=== PATIENT | female | born 1955 | race Caucasian/White ===

== ENCOUNTER 2020-04-17 05:46 | Day surgery (SDC) | payer MEDICARE, MEDICAID, SELFPAY ==
[2020-04-17] VITALS (30 sets, daily range): BP systolic 106–203; BP diastolic 52–110; PULSE 62–87; RESP 12–24; TEMP 36.8; O2SAT 90–95
[2020-04-17] MEDS: diphenhydrAMINE 50 mg Capsule PO (06:19)
--- NOTE | 2020-04-17 07:00 | XACV_ITS ---
Ht: 160 cm Wt: 54 kg BSA: 1.54 m2 Gender: Female : 1955 Any Known Allergies: No known allergies Exam Priority: Routine Procedure(s): Procedure Description: Diagnostic procedure Procedure Description: Left Heart Catheterization Procedure Description: Right Heart Catheterization Procedure Description: O2 saturation Procedure Description: Coronary Angiography Diagnostic Cath Status: Elective Diagnostic Findings * CX has luminal irregularities. It gives rise to 2 OM branches which are free of significant disease.. * RCA is the dominant vessel. It has luminal irregularities. . * mLAD to dLAD: Moderate to severe 60-70% stenosis, ONELIA: 3 flow. Attempt was made to perform FFR of mid LAD, however patient was very restless moving her legs and arms and it was not safe to continue without anesthesia support. Anesthesia was not available. We aborted the FFR attempt. * RHC: RA Pressure: 16/14 (13) RV: 35/6(13) 13 Wedge pressure: 15/15(14) PA pressure: 38/17(24) PA sat 66.4% Ao sat 95% By Mark cardiac output 3.23 L/min Cardiac index 2.1 . * LM has 0% stenosis. * Coronary angiography shows right dominance. Interventional Findings * We engaged the left main artery using XB 3.0 guide catheter. An attempt was made to wire the LAD with FFR wire. However patient was very restless and kept moving the legs and the arms. It was not considered safe to continue with the procedure without anesthesia support. We aborted the FFR attempt. We will arrange for staged procedure with anesthesia support. Conclusions 1. There is moderate to severe coronary artery disease with one vessel disease. Mid LAD 60 to 70% stenosis is noted. This likely is severe stenosis given her cardiomyopathy and more prominent hypokinesis and apical region correlates with the stenosis. However given angiographically 60 to 70% stenosis, will need FFR evaluation before intervention is performed.. 2. Mildly elevated right-sided pressures. Normal wedge pressure. Recommendations * Patient could not stay still and was very restless. She was moving her legs and arms that made proceeding with wiring of LAD unsafe without anesthesia support. We will stage the procedure with anesthesia to perform FFR and likely intervention of mid LAD. * Continue current medications. Diagnostic RX Recommendation: medical therapy and/or counseling Anticoagulation: Heparin Pressures Phase:Rest AO : / ( 9 ) @ 2:10:00 AM 165 / 81 ( 116 ) @ 2:43:00 AM 163 / 89 ( 120 ) @ 2:43:00 AM 166 / 82 ( 118 ) @ 2:44:00 AM 170 / 87 ( 123 ) @ 2:47:00 AM RV : 24 / -3 / @ 2:29:00 AM 35 / 6 / @ 2:29:00 AM PA : 38 / 17 ( 24 ) @ 2:30:00 AM RA : a wave = v wave = mean = 2 @ 2:29:00 AM a wave = v wave = mean = 13 @ 2:32:00 AM O2 Content Phase:Rest PA : O2 Content O2: 66.4 @ 2:10:00 AM Saturations Phase:Rest AO : 95 @ 2:43:00 AM PA : 66 @ 2:10:00 AM Cardiac Output Phase:Rest Mark : 3 @ 2:10:00 AM Mark Cardiac Index: 2 @ 2:10:00 AM Clinical Evaluation EBL: 5mL-10mL Procedural Details Procedure Consent Obtained. Pre-Procedure Time Out. Identified patient by full name and date of as verbalized by the patient/guarantor. Does the consent match the physician's order: Yes. Accurate & Complete Informed Consent: Yes. Inpatient/Outpatient History & Physical on Chart: Yes. If H&P is completed, is and addenduem needed: N/A; If yes, is the addendum complete: N/A. Visualize and Verify Site with Patient/Guarantor: N/A. Relevant Radiology Images available: Yes. Pre-op teaching completed and patient verbalized understanding. The risks, benefits, and alternatives of sedation and/or procedure were discussed by physician. The patient agrees to continue. Procedure started. Correct patient, site and procedure confirmed by cath team. PERRLA. Strong, equal hand steam train driver bilaterally. Lungs clear x 5 lobes. IV Site on Arrival: 20 gauge in the right anticubital. IV Site on Arrival: 22 gauge in the left anticubital. IV Fluids: 0.9% NaCl at KVO. 0 mL infused prior to shipyard laborer. Pre Procedural Pulses: bilateral dorsalis pedis was 3+. Pre Procedural Pulses: bilateral posterior tibial was Doppled. Pre Procedural Pulses: bilateral radial was 3+. pt on R/A for right heart cath. right groin was prepped with chloroprep then draped in the usual sterile fashion. right radial was prepped with chloroprep then draped in the usual sterile fashion. right brachial was prepped with chloroprep then draped in the usual sterile fashion. Physician notified. Baseline sample Acquired. HR: 68 BPM. Equipment: 6F - Radial. ACIST Manifold Kit Model BT 2000. Cardiac Cath Pack. Heparinized Saline (2 units/mL), 1000 mL bag. Physician arrived. Physician scrubbed in. Immediate Pre-Procedure Time Out. Correct Patient: Yes; Correct Procedure: Yes; Correct Site: Yes; Correct Patient Position: Yes; Correct Supplies: Yes; Dried Flammable Prep: Yes; Blood Products Available: No;. Lidocaine 1% infiltrated to the right brachial. sheath wire inserted through iv catheter. iv catheter out. [place]-Ronald MON catheter inserted. cougar wire inserted through swan. cougar wire out. Catheter out. A 5 niuean Angled Pig catheter in over wire. [place]onald out. Pressure measurements obtained. Oximetry samples were obtained. Normal venous range: 60-85%. Normal arterial range: 95-100%. Lidocaine 1% infiltrated to the right radial. Arterial access obtained. A 5 niuean TIG catheter in over wire. Oxygen started at 2liters/min via nasal canula. Multiple views taken of left coronary artery. Catheter redirected to the RCA. Multiple views taken of right coronary artery. Catheter out. 6 niuean XB 3 guide catheter was inserted over the wire. pressure wire inserted. Anesthesia called. Unavailable at this time. pressure wire out. Guide catheter out. unable to obtain FFR. A Manual Compression was successful obtaining hemostatsis at the Right Brachial Vein insertion site. A TR Band was successful obtaining hemostatsis at the Right Radial artery insertion site. TR band placed. Hemostasis obtained. Pressure dressing applied to brachial. Post Procedure: Pulses reassessed and unchanged. PERRLA. Strong, equal hand steam train driver bilaterally. No VTE prophylaxis required. Medication's Wasted: Lidocaine 1% = 15 mL. Medication's Wasted: Heparin = 4000 units. Medication's Wasted: Nitro = 49.8 mg. Medication's Wasted: Other = Adenosine 90 mg. Total IV fluids: 85.6 mL. Fluoro: 10:00. Contrast type used: Omnipaque 300 mgI/mL, 500 mL bottle. [id number]. Post-op diagnosis: moderate LAD disease. Complications: none. Estimated blood loss: 5mL-10mL. Procedure completed. Patient transferred by bed to CPRU. [facility] Clinical Fraility Score: 3: Managing Well. Asset Protection Assistant Indications: Worsening Angina. Asset Protection Assistant Indications: Cardiomyopathy. Chest Pain Symptom Assessment: Typical Angina Symptoms. Cardiovascular Instability: No. Vital chart was stopped. Access Site Site: Right Brachial Vein Sheath Size: 6 Fr Hemostasis Method: Manual Compression Hemostasis Success: Successful Site: Right Radial artery Sheath Size: 6 Fr Hemostasis Method: TR Band Hemostasis Success: Successful Procedure Medications Start: 7:19 AM Stop: 7:19 AM Medication: Versed Amount: 1 mg Route: I.V. Start: 7:19 AM Stop: 7:19 AM Medication: Fentanyl Amount: 25 mcg Route: I.V. Start: 7:23 AM Stop: 7:23 AM Medication: Versed Amount: 1 mg Route: I.V. Start: 7:34 AM Stop: 7:34 AM Medication: Fentanyl Amount: 25 mcg Route: I.V. Start: 7:38 AM Stop: 7:38 AM Medication: Nitrogylcerin Amount: 200 mcg Route: I.A. Start: 7:40 AM Stop: 7:40 AM Medication: Versed Amount: 1 mg Route: I.V. Start: 7:41 AM Stop: 7:41 AM Medication: Heparin Amount: 5000 units Route: I.V. Start: 7:48 AM Stop: 7:48 AM Medication: Versed Amount: 1 mg Route: I.V. Start: 7:48 AM Stop: 7:48 AM Medication: Fentanyl Amount: 50 mcg Route: I.V. Start: 7:57 AM Stop: 7:57 AM Medication: Heparin Amount: 2000 units Route: I.V. I, the attending physician, have reviewed and verified all procedure medications. Yes, all medications given per verbal order History/Risk Factors Hypertension: Yes Tobacco Use: Former Report Signatures Finalized by Keshawn Kohli MD on 04/17/2020 09:05 AM
--- NOTE | 2020-04-17 07:19 | W.PM.OPSUD ---
Surgery/Procedure H&P Update DATE OF PROCEDURE: April 17, 2020 DATE H&P PERFORMED: 03/26/20 H&P UPDATE INFORMATION: I have reviewed H&P completed within last 30 days, I have examined patient prior to procedure and No changes to prior documentation PREOP DIAGNOSIS: Worsening angina/New onset heart failure PRIMARY INDICATION FOR PROCEDURE: Worsening angina/new onset heart failure PLANNED PROCEDURE: Operation Date: 04/17/20 07:00 Proposed Procedures p Cardiac Catheterization(Bilateral) - Keshawn Kohli M.D Right heart cath/possible intervention PATIENT REASSESSED PRIOR TO SEDATION, WITH NO CHANGE NOTED: Yes PHYSICAL EXAM: alert, oriented x 3 and clear to auscultation bilaterally AIRWAY EVAL/ANESTHESIA PLAN: ASA III, Risks, benefits & alternatives of sedation and/or procedure discussed and Patient agrees to continue as planned
--- NOTE | 2020-04-17 08:30 | PC.NURSE ---
From seed laboratory technician Received pt from lab nurse via wheelchair. Sleepy from sedation. Opens eyes when awaken. Tr band intact in right wrist. Bulky dressing on right bracial artery intact. Bleeding or swelling noted to right upper arm. No hematoma, swelling, bleeding noted. Radial pulse is palpable +3. Instructed pt to not to use right hand arm to push, pull to prevent from bleeding. Instructed pt to call nurse right away if there is unusual pain, numbness or wetness on her right hand. Pt verbalizes understanding.
--- NOTE | 2020-04-17 10:15 | PC.NURSE ---
Oozing noted Pt got out of the B[facility] independently and started to have blood oozing in her TR Band. Reminded pt not to put pressure using her right arm. Pt verbalizes understanding. Applied 3 ml of air back in the TR band. No hematoma, swelling or bleeding. Radial pulse is palpable +3. Will monitor.
[2020-04-17] MEDS: sertraline 50 mg Tablet 25 MG PO (10:35)
[2020-04-17] MEDS: levothyroxine 50 mcg Tablet PO (10:35)
[2020-04-17] MEDS: lisinopril 20 mg Tablet 40 MG PO (10:36)
[2020-04-17] MEDS: pantoprazole DR 40 mg Tablet PO (10:36)
[2020-04-17] MEDS: metoprolol tartrate 50 mg Tablet PO (10:36)
[2020-04-17] MEDS: hyDRALAzine 20 mg/mL INJ 1 mL 10 MG IVP (10:37)
[2020-04-17] MEDS: amlodipine 10 mg Tablet PO (10:37)
--- NOTE | 2020-04-17 11:23 | PC.CHAP ---
Pastoral Care Encounter/Spiritual Assessment Type of Contact [] Declined fire control system installer visit [] Patient/Family/Request visit [] Outpatient visit [] Follow-up visit [] Physician referral [] Code/Alert [] Routine visit [] Staff referral [] Actively dying [xx] Patient sleeping [] Family support [] [] Out of room [] Palliative care [] [] Receiving care in room [] Pre-surgical visit [] Trauma [] Long length of stay [] ICU visit [xx] Other: Follow up needed Relational/Emotional Strength [] Patient feels connected with others/family/visitors/staff [] Distress [] Loneliness/isolation [] Abandonment Spirituality of Patient [] Person of Bee [] Attends Islam of their Bee [] Believes in Prayer [] Reads Bible or Religion materials [] There are Spiritual issues to be addressed Laborer Electroplating Interventions [] Prayer [] Active listening [] Non-anxious presence [] Spiritual/emotional support [] Crisis/trauma care [] Spiritual counseling [] Bereavement support [] Provided bereavement packet [] Provided Bible/devotional materials [] Provided toy/stuffed animal, coloring book to patient or family member [] Provided Communion [] Anointing/[place] [] Salvation [] Completed spiritual assessment [] Other: Impact on Illness or Injury [] Angry [] Fearful [] Anxious [] Often cries [] Exhaustion [] Unable to work [] Unable to attend nondenominational [] Unable to walk/stand [] Unable to read [] Unable to drive [] Unable to eat/drink [] Unable to sleep [] Unable to be with family [] Patient intubated [] Other: Summary Follow-up needed. Patient had been sedated. Time spent with patient Laborer Electroplating Debra Lomeli
--- NOTE | 2020-04-17 12:30 | PC.NURSE ---
TR band off Removed Tr band on right wrist. no hematoma, swelling or bleeding noted. Palpable radial pulse +3. Dressing applied to right wrist. Instructed pt on activity restrictions. Pt verbalizes understanding.
--- NOTE | 2020-04-17 16:00 | PC.NURSE ---
Discharge to home Discuss to pt on follow-up appointments discussed. Educated pt on post angiogram home care instructions. Activity restrictions provided on how to not use her right arm for 2 days. Educated on wound care. Discharge papers provided to pt. Ushered via wheelchair.
== END 2020-04-17 16:03 | disposition home or self-care (01) ==
LOC: CCL 06:28 → CSU 07:21
PROVIDERS: Visit Provider Internal Medicine
DX: I25.10 Atherosclerotic heart disease of native coronary artery without angina pectoris (principal); R07.89 Other chest pain; I10 Essential (primary) hypertension; I11.0 Hypertensive heart disease with heart failure; I50.20 Unspecified systolic (congestive) heart failure; I44.7 Left bundle-branch block, unspecified; E78.00 Pure hypercholesterolemia, unspecified; Z79.82 Long term (current) use of aspirin; E03.9 Hypothyroidism, unspecified; Z87.891 Personal history of nicotine dependence
CPT/HCPCS: 12345; 36415; 93456; 96375; C1769; C1887; C1894; J0153; J0360; J1644; J2250; J3010; J3490; J7030; Q0163; Q9967

== ENCOUNTER 2020-08-31 06:45 | Outpatient (CLI) | payer MEDICARE, MEDICAID, SELFPAY ==
[2020-08-31 07:35] VITALS: BMI 21.2
--- NOTE | 2020-08-31 07:37 | NMCV_ITS ---
NM wesley perf SPECT r/s* [id number] Tari Hyatt Age: 64 Gender: F : 1955 Exam Date: 08/31/2020 08:45 Ordering Phys: Keshawn Kohli M.D ([email or web address]) Technologist: KADI Heller Exam Location: [facility] Indications: ATHEROSCLEROTIC STRESS TEST Please see [facility] for [facility] IMAGE PROTOCOL Rest/Stress 1 Lexiscan Day Radiopharmaceutical Dose (mCi) Administration Site Administered by Rest: Tc-99m 10.9 IV KADI Graves Sestamibi Stress:Tc-99m 32.3 IV KADI Graves Sestamibi Rest: 31-Aug-2020 60 Discovery 630 Stress: 31-Aug-2020 30 Discovery 630 0.4mg Lexiscan. Images obtained in supine and prone position. SPECT RESULTS Technical Quality: Excellent Raw Data Analysis: Normal Image Corrections: No attenuation or motion correction applied Summed Stress Score: 1 Summed Rest Score: 4 Summed Difference Score: 0 PERFUSION FINDINGS There is reduced radiotracer uptake in the apical and apical septal arnold both on rest and stress. Likely represents prior infarct vs attenuation artifact FUNCTIONAL RESULTS (calculated via Gated SPECT) Stress Image LV EF (%): 35 Stress EDV (mL):107 TID: 1.33 Stress ESV (mL):70 FUNCTIONAL FINDINGS: LV systolic function is moderate to severely reduced with EF of 35% IMPRESSIONS 1. There is reduced radiotracer uptake in the apical and apical septal anrold both on rest and stress. Likely represents prior infarct vs attenuation artifact. No evidence of ischemia. 2. Elevated TID ratio of 1.33 2. LV systolic funtion is moderate to severely reduced with EF of 35% Keshawn oKhli MD (Electronically Signed) Final Date: 04 September 2020 17:34 S
--- NOTE | 2020-08-31 07:37 | ECG_ITS ---
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 Interpretive Statements NAME OF STUDY: LEXISCAN SESTAMIBI STRESS TEST INDICATION: [Coronary Artery Disease] Procedure: At the baseline, the blood pressure was 208/114mmHg, heart rate of 77 bpm. Electrocardiogram showed normal sinus rhythm,left bundle branch block. The Lexiscan was infused over a duration of 20 seconds. A total of 0.4 mg of Lexiscan was infused. The stress phase was continued for a total of 5 minutes. Heart rate at the end of stress phase was 131 bpm with a blood pressure of 210/110 mmHg. The EKG revealed sinus rhythm with no significant ST-T wave changes. Sestamibi was injected 20 seconds after the Lexiscan infusion. Blood pressure at the end of recovery phase was 198/99mmHg with a heart rate of 80 bpm. Conclusion: 1. Normal EKG response to Lexiscan infusion. 2. No Lexiscan induced chest pain or cardiac arrhythmia. 3. Normal blood pressure and tachycardic heart rate response. 4. Sestamibi/sestamibi perfusion scan pending; see separate report. Electronically Signed On 09-20-2020 17:23:31 CDT by Keshawn Kohli M.D. [id number]
[2020-08-31] MEDS: regadenoson 0.4 Mg/5 ml Syringe IVP (10:52)
[2020-08-31] MEDS: aminophylline 25 mg/mL SDV 10 mL IVP (10:59)
[2020-08-31] MEDS: metoprolol tartrate 1 mg/1 mL SDV 5 mL 5 MG IV (11:20)
[2020-08-31 11:31] VITALS: BP 198/99; PULSE 73
== END 2020-08-31 06:46 | disposition home or self-care (01) ==
LOC: RAD 06:51 → CDL 07:19
PROVIDERS: PCP Family Medicine; Visit Provider Internal Medicine
DX: I25.10 Atherosclerotic heart disease of native coronary artery without angina pectoris (principal)
CPT/HCPCS: 78452; 93017; A9500; J0280; J2785; J3490

== ENCOUNTER 2020-09-27 01:17 | Inpatient (IN) | payer MEDICARE, MEDICAID, SELFPAY ==
[2020-09-27] VITALS (86 sets, daily range): BP systolic 103–186; BP diastolic 55–103; PULSE 64–124; RESP 12–46; TEMP 36.6–36.7; O2SAT 92–97; BMI 22.6
--- NOTE | 2020-09-27 01:16 | P.HP_ITS ---
Providers/Chief Complaint Admitting Physician: Bridger Moore MD Primary Care Provider: Eagle Quintanilla Chief Complaint: NONSTEMI History of Present Illness Tari Hyatt is a 64 year old female who has an established history of coronary artery disease, left heart catheterization 04/07 revealed significant restenosis mid LAD 60 to 70% however procedure was aborted without intervention because of patient's agitation/symptoms, EF 35% history of hypothyroidism, hypertension, she presented to [place] [facility] with chief complaint of worsening shortness of breath. At [place] [facility] she was very anxious tachypneic with respiratory distress, she was requiring 2 L nasal cannula to keep saturation above 92%, EKG revealed chronic left bundle branch block, first troponin 18, 2-hour troponin 68, CTA negative for PE, she was hypertensive as well for which she was given IV Catapres 0.1mg and metoprolol 25mg which brought her pressure down from 200 to 130mmhg systolic. See 10 units for hyperglycemia blood sugar around 350s. Tsh 5. Mild JEANNINE was noticed on BMP with delta of creatinine from 0.9-1.5, Dr. Kohli was contacted who accepted the patient and agreed with NSTEMI protocol. At the time of my evaluation patient was comfortably sleeping in her room, not complaining of any chest pain or shortness of breath she was saturating well on room air blood pressure 151/70 mmHg. Patient is stating that she had a panic attack and she was breathing very fast as when she went to the hospital, she also experienced 20 minutes of chest discomfort which she describing as pressure-like sensation, she experienced 1 episode of emesis 24 hours before her presentation to the ER. She recently started using amlodipine for her hypertension along with lisinopril, hydralazine and hydrochlorothiazide. Review of Systems Const: Reports: fatigue; Denies: fever(s) Eyes: Denies: change in vision ENMT: Denies: throat pain Card: Reports: chest pain and dyspnea on exertion; Denies: palpitations, irregular heart rhythm or orthopnea Resp: Reports: dyspnea and non-productive cough GI: Reports: vomiting; Denies: abdominal pain or diarrhea : Denies: flank pain Musc: Denies: neck pain Skin/Breast: Denies: lesions Neuro: Denies: headache(s) Psych: Reports: anxiety Endo: Denies: polyuria Gustavo/Lymph: Denies: easy bruising All/Imm: Denies: urticaria Medications/Allergies Home Medications Medication Instructions Recorded Confirmed Last Taken Type aspirin 81 mg tablet,delayed 81 mg PO QPM 03/26/20 09/27/20 04/16/20 21:00 History release levothyroxine 50 mcg capsule 50 mcg PO QAM 03/26/20 09/27/20 09/26/20 07:00 History lisinopril 40 mg tablet 40 mg PO QAM 03/26/20 09/27/20 09/26/20 08:00 History metoprolol tartrate 50 mg tablet 50 mg PO BID 03/26/20 09/27/20 04/16/20 09:00 History nitroglycerin 0.4 mg sublingual 0.4 mg SUBLINGUAL Q5M PRN 03/26/20 09/27/20 Unknown History tablet omeprazole 40 mg capsule,delayed 40 mg PO QAM 03/26/20 09/27/20 04/16/20 09:00 History release amlodipine 10 mg PO QAM 04/16/20 09/27/20 04/16/20 09:00 History cholecalciferol (vitamin D3) 50 mcg PO DAILY 09/27/20 09/27/20 Unknown History [Vitamin D3] hydralazine 50 mg PO BID 09/27/20 09/27/20 Unknown History hydrochlorothiazide 12.5 mg PO DAILY 09/27/20 09/27/20 Unknown History lovastatin 20 mg PO 1800 09/27/20 09/27/20 Unknown History magnesium 250 mg PO DAILY 09/27/20 09/27/20 Unknown History metformin 500 mg PO BIDWM 09/27/20 09/27/20 Unknown History sertraline 50 mg PO DAILY 09/27/20 09/27/20 Unknown History Allergies Allergy/AdvReac Type Severity Reaction Status Date / Time No Known Allergies Allergy Unverified 09/22/20 14:52 PFSH Acute PFSH: Medical History Abn react-cardiac cath Congestive heart failure Diabetes HLD (hyperlipidemia) Hypercholesterolemia Left bundle branch block Surgical History Hx of cardiac cath Family History Other Hypertension Social History Smoking and tobacco status: former smoker Quit status (tobacco): has quit using tobacco Second hand smoke exposure: No Smoking risk assessment/counseling performed?: No Alcohol intake: never Desire information about alcohol rehabilitation?: No Counseling given: No Desire information about substance/drug rehabilitation?: No Vitals/I&O/Wt Last Vital Signs Pulse 79 09/27/20 00:32 Resp 17 09/27/20 00:32 BP 151/71 09/27/20 00:32 Pulse Ox 94 09/27/20 00:32 Weight last 48 hrs Weight 58.06 kg Physical Exam Narrative: EXAM NARRATIVE: female who was comfortably sleeping in her room when I entered, She became very startled when I woke her up Blood pressure 155/77 mmHg Saturating well on room air No active chest pain or shortness of breath S1, S2 grade 2/6 systolic murmur right second intercostal Abdomen soft no active tenderness EOMI, PERRLA No neurological deficit Awake alert and attentive GCS 15 Patient does endorse panic attack Low extremity no edema gangrene ulcer Clinically looks dehydrated A&P Assessment and plan (1) NSTEMI (non-ST elevated myocardial infarction): Status: Acute (2) Left bundle branch block: Status: Acute (3) Hypertensive urgency: Status: Acute (4) JEANNINE (acute kidney injury): Status: Acute (5) Panic attack: Status: Acute Additional A&P Information NSTEMI EKG showing T wave inversion,. Troponin XVIII, 2-hour troponin 68 with delta of 50, I would request another troponin level and EKG Currently chest pain-free no active shortness of breath saturating well on room air Start heparin Avoid metoprolol because of left bundle branch block and lisinopril because of JEANNINE Start aspirin, Plavix, heparin and atorvastatin Dr. Kohli consulted Patient will be kept n.p.o. overnight Acute kidney disease due to dehydration Patient clinically looks dehydrated I will stop her lisinopril hydrochlorothiaz kimberli We will keep her on gentle fluid resuscitation overnight if her creatinine improves in the morning, she might go for an angiogram Type 2 diabetes: Uncontrolled blood sugar I will keep her on low-dose sliding scale because she will be n.p.o., if angiogram gets delayed kindly start her diet with moderate sliding scale Hypertensive urgency: Systolic blood pressure 200s, current blood pressure 1 55mmhg I would avoid rapid reduction of blood pressure, we will keep her on hydralazine and would use IV as needed medications if systolic blood pressure ranges above 180mmhg Suboptimally controlled hypothyroidism: TSH 5 I would go ahead and increase her levothyroxine dose to 75 mcg Full code N.p.o. DVT prophylaxis not indicated due to heparin GTT Attestations Medical Necessity Statement*: Anticipating stay in the hospital because more than 2 midnights for NSTEMI will need an angiogram Time Spent in Patient Care: (>than 50% of time spent in counselling and/or direct pt care on unit) . 40mins Coding Level of Care Code Acute Watershed Coordinator for Melissa Ruiz Diagnoses NSTEMI (non-ST elevated myocardial infarction) I21.4 Left bundle branch block I44.7 Hypertensive urgency I16.0 JEANNINE (acute kidney injury) N17.9 Panic attack F41.0
--- NOTE | 2020-09-27 01:19 | ECG_ITS ---
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 Measurements Intervals [place] Rate: 69 P: 53 [place]: 170 QRS: -30 QRSD: 143 T: 164 QT: 443 QTc: 477 Interpretive Statements SINUS RHYTHM LEFT BUNDLE BRANCH BLOCK [120+ ms QRS DURATION, 80+ ms Q/S IN V1/V2, 85+ ms R IN I/aVL/V5/V6] No previous ECG available for comparison Electronically Signed On 09-27-2020 15:31:08 CDT by Keshawn Kohli M.D. [id number]
[2020-09-27] MEDS: sodium chloride 0.9% 1,000 ML 75 ML IV ×2 (02:35→18:37)
[2020-09-27] MEDS: heparin 5,000 unit/mL INJ 1 mL IV (02:37)
[2020-09-27] MEDS: heparin drip 25,000 UNIT/500 ML PREMIX 16 UNIT IV (02:40)
[2020-09-27 05:11] LABS: Basophils # 0.1 10^3/uL (0.0-0.1); Basophils % 0.7 %; Eosinophils # 0.1 10^3/uL (0.0-0.8); Eosinophils % 1.4 %; Hematocrit 34.9 % (37.0-47.0); Hemoglobin 11.5 g/dL (11.5-15.3); Lymphocytes # 2.1 10^3/uL (0.8-4.8); Lymphocytes % 29.5 %; Mean Corpuscular Hemoglobin 29.9 pg (28.0-34.0); Mean Corpuscular Volume 90.9 fL (81-99); Mean Platelet Volume 10.6 fL (7.4-10.4); Monocytes # 0.5 10^3/uL (0.2-0.9); Monocytes % 7.3 %; Nucleated Red Blood Cells % 0 %; Platelet Count 191 10^3/cmm (130-400); Red Blood Count 3.84 10^6/uL (4.1-5.3); Red Cell Distribution Width 11.7 % (12.1-15.1); White Blood Count 7.2 10^3/uL (4.0-10.0)
[2020-09-27] MEDS: pantoprazole DR 40 mg Tablet PO (05:17)
[2020-09-27] MEDS: levothyroxine 75 mcg Tablet PO (05:17)
[2020-09-27] MEDS: amlodipine 10 mg Tablet PO (05:17)
[2020-09-27 05:40] LABS: Anion Gap 15.6 (5-19); Blood Urea Nitrogen 22 mg/dL (8-23); Calcium 7.6 mg/dL (8.5-10.5); Carbon Dioxide 20 mmol/L (22-29); Chloride 108 mmol/L (98-107); Glomerular Filtration Rate 62.8 mL/min (90-130); Glucose 191 mg/dL (65-115); Osmolality Calculated 296 mOsm/kg (285-295); Potassium 4.6 mmol/L (3.5-5.1); Sodium 139 mmol/L (136-145)
[2020-09-27 06:33] LABS: Troponin T (5th) Once 116 ng/L (0-10)
[2020-09-27] MEDS: isosorbide mononitrate ER 30 mg Tablet PO (08:32)
[2020-09-27] MEDS: sertraline 50 mg Tablet PO (08:32)
[2020-09-27] MEDS: hyDRALAzine 50 mg Tablet PO ×2 (08:33→17:45)
[2020-09-27] MEDS: aspirin 81 mg EC Tablet PO (08:33)
[2020-09-27] MEDS: clopidogrel 75 mg Tablet PO (08:33)
--- NOTE | 2020-09-27 08:50 | PM.CONSULT ---
Providers/Reason For Consult Consulting Physican/Specialty*: Keshawn Kohli MD/ Cardiology Reason for Consult*: NSTEMI Requesting Physcian: Dr Chiu Attending Physician: Bridger Moore MD Primary Care Provider: Eagle Quintanilla History of Present Illness History of Present Illness Tari Hyatt is a 64 year old female with PMH history of coronary artery disease, left heart catheterization 04/07 revealed moderate to severe mid LAD 60 to 70%. Plan was to perform FFR however patient could not lay down still and we had to abort the procedure. Stress test later on showed elevated TID ratio. Her EF is 35%. She also has history of hypothyroidism, difficult to control hypertension. Patient presented to [facility] with complaints of shortness of breath. She also had a chest pain episode that lasted about 20 minutes. Her blood pressure was significantly elevated. Her troponins trended up significantly. She is currently chest pain-free. She has left bundle branch block which is chronic on her EKG. Patient also had episode of emesis yesterday. Review of Systems Const: Reports: fatigue; Denies: fever(s) Eyes: Denies: change in vision ENMT: Denies: throat pain Card: Reports: chest pain and dyspnea on exertion; Denies: palpitations, irregular heart rhythm or orthopnea Resp: Reports: dyspnea and non-productive cough GI: Reports: vomiting; Denies: abdominal pain or diarrhea : Denies: flank pain Musc: Denies: neck pain Skin/Breast: Denies: lesions Neuro: Denies: headache(s) Psych: Reports: anxiety Endo: Denies: polyuria Gustavo/Lymph: Denies: easy bruising All/Imm: Denies: urticaria Meds/Allergies Home Medications and Allergies Home Medications Medication Instructions Recorded Confirmed Last Taken Type aspirin 81 mg tablet,delayed 81 mg PO QPM 03/26/20 09/27/20 04/16/20 21:00 History release levothyroxine 50 mcg capsule 50 mcg PO QAM 03/26/20 09/27/20 09/26/20 07:00 History lisinopril 40 mg tablet 40 mg PO QAM 03/26/20 09/27/20 09/26/20 08:00 History metoprolol tartrate 50 mg tablet 50 mg PO BID 03/26/20 09/27/20 04/16/20 09:00 History nitroglycerin 0.4 mg sublingual 0.4 mg SUBLINGUAL Q5M PRN 03/26/20 09/27/20 Unknown History tablet omeprazole 40 mg capsule,delayed 40 mg PO QAM 03/26/20 09/27/20 04/16/20 09:00 History release amlodipine 10 mg PO QAM 04/16/20 09/27/20 04/16/20 09:00 History cholecalciferol (vitamin D3) 50 mcg PO DAILY 09/27/20 09/27/20 Unknown History [Vitamin D3] hydralazine 50 mg PO BID 09/27/20 09/27/20 Unknown History hydrochlorothiazide 12.5 mg PO DAILY 09/27/20 09/27/20 Unknown History lovastatin 20 mg PO 1800 09/27/20 09/27/20 Unknown History magnesium 250 mg PO DAILY 09/27/20 09/27/20 Unknown History metformin 500 mg PO BIDWM 09/27/20 09/27/20 Unknown History sertraline 50 mg PO DAILY 09/27/20 09/27/20 Unknown History Allergies Allergy/AdvReac Type Severity Reaction Status Date / Time No Known Allergies Allergy Unverified 09/22/20 14:52 Current Medications Current Medications Generic Name Dose Route Start Last Admin Trade Name Freq PRN Reason Stop Dose Admin Amlodipine Besylate 10 mg 09/27/20 06:00 09/27/20 05:17 Amlodipine 10 Mg Tablet PO 10 mg QAM PÉREZ Administration Aspirin 81 mg 09/27/20 09:00 09/27/20 08:33 Aspirin 81 Mg Ec Tablet PO 81 mg DAILY PÉREZ Administration Clopidogrel Bisulfate 75 mg 09/27/20 09:00 09/27/20 08:33 Clopidogrel 75 Mg Tablet PO 75 mg DAILY PÉREZ Administration Heparin Sodium (Beef Lung) 0 unit 09/27/20 01:17 09/27/20 02:37 Heparin 5,000 Unit/Ml Inj 1 Ml IV 2,900 unit PRN PRN Administration Heparin weight-base protocol Protocol Hydralazine HCl 50 mg 09/27/20 09:00 09/27/20 08:33 Hydralazine 50 Mg Tablet PO 50 mg BID PÉREZ Administration Heparin Sodium/Sodium Chloride 25,000 unit in 500 mls @ 0 mls/hr 09/27/20 01:30 09/27/20 02:40 Heparin Drip IV 13.78 unit/kg/hr .Q0M PÉREZ 16 mls/hr Administration Protocol Per Protocol Sodium Chloride 1,000 mls @ 75 mls/hr 09/27/20 01:30 09/27/20 02:35 Sodium Chloride 0.9% IV 75 mls/hr .[id number] PÉREZ Administration Isosorbide Mononitrate 30 mg 09/27/20 09:00 09/27/20 08:32 Isosorbide Mononitrate Er 30 Mg Tablet PO 30 mg DAILY PÉREZ Administration Levothyroxine Sodium 75 mcg 09/27/20 06:00 09/27/20 05:17 Levothyroxine 75 Mcg Tablet PO 75 mcg QAM PÉREZ Administration Pantoprazole Sodium 40 mg 09/27/20 06:00 09/27/20 05:[address] 40 Mg Tablet PO 40 mg QAM PÉREZ Administration Sertraline HCl 50 mg 09/27/20 09:00 09/27/20 08:32 Sertraline 50 Mg Tablet PO 50 mg DAILY PÉREZ Administration PFSH Acute PFSH: Medical History Abn react-cardiac cath Congestive heart failure Diabetes HLD (hyperlipidemia) Hypercholesterolemia Left bundle branch block Surgical History Hx of cardiac cath Family History Other Hypertension Social History Smoking and tobacco status: former smoker Quit status (tobacco): has quit using tobacco Second hand smoke exposure: No Smoking risk assessment/counseling performed?: No Alcohol intake: never Desire information about alcohol rehabilitation?: No Counseling given: No Desire information about substance/drug rehabilitation?: No Vitals/I&O/Wt Last Vital Signs Temp 97.9 F 09/27/20 07:14 Pulse 70 09/27/20 07:14 Resp 17 09/27/20 07:14 BP 176/74 09/27/20 07:14 Pulse Ox 95 09/27/20 07:14 Weight last 48 hrs Weight 128 lb Physical Exam Narrative: EXAM NARRATIVE: GENERAL: Awake, alert, oriented, in no acute distress. [] HEENT: Normocephalic, atraumatic, PERRLA. [] CHEST: Clear to auscultation bilaterally. [] CVS: S1, S2 normal. No murmur, rubs, gallops. Peripheral pulses palpable. [] ABDOMEN: Soft, nontender. Nondistended. Bowel sounds heard. [] NEUROVASCULAR: Awake, alert. Power 5/5 all extremities. DTR+ [] EXTREMITIES: No edema. [] A&P Assessment and plan (1) JEANNINE (acute kidney injury): Status: Acute (2) Hypertensive urgency: Status: Acute (3) NSTEMI (non-ST elevated myocardial infarction): Status: Acute (4) Congestive heart failure: Status: Acute (5) Left bundle branch block: Status: Acute (6) Hypercholesterolemia: Status: Acute Patient has presented with NSTEMI with significant delta of troponins and chest pain. She has baseline left bundle branch block. She also was in hypertensive urgency. Blood pressure is relatively better controlled now. Given patient's known coronary artery disease and current presentation with NSTEMI, will proceed with coronary angiogram with possible percutaneous coronary intervention. Continue heparin drip. Aspirin and Plavix. N.p.o. for now. Cardiogram. Thank you for involving us with care of this patient. We will continue to follow. Please call with questions. Coding Level of Care Code Acute Electrolysist for Melissa Ruiz Diagnoses JEANNINE (acute kidney injury) N17.9 Hypertensive urgency I16.0 NSTEMI (non-ST elevated myocardial infarction) I21.4 Congestive heart failure I50.9 Left bundle branch block I44.7 Hypercholesterolemia E78.00
[2020-09-27] MEDS: diphenhydrAMINE 50 mg Capsule PO (09:43)
[2020-09-27 09:44] LABS: Partial Thromboplastin Time 139.6 SECONDS (23.9-36.7)
[2020-09-27] MEDS: sodium chloride 0.9% 1,000 ML 50 ML IV (09:44)
--- NOTE | 2020-09-27 09:49 | XACV_ITS ---
Exam Room: [facility] Ht: 160 cm Wt: 58 kg BSA: 1.61 m2 Gender: Female : 1955 Any Known Allergies: No known allergies Exam Priority: Routine Procedure(s): Procedure Description: Diagnostic procedure Procedure Description: PCI procedure Procedure Description: Drug Eluting Coronary Stent Procedure Description: PTCA Procedure Description: Miscellaneous Procedure Description: ACT Procedure Description: Coronary Angiography Diagnostic Cath Status: Urgent Diagnostic Findings * RCA has mild luminal irregularities. * LAD is a large vessel. It gives rise to 2 medium sized diagonal arteries. At the level of the second diagonal artery, there is a 70% stenosis. Mid Left Anterior Descending Coronary Artery to mLAD: 70% stenosis, ONELIA: 3 flow. * LM has mild luminal irregularities. * CX has mild luminal irregularities. No significant stenosis is noted. * Coronary angiography shows right dominance. PCI Status: Urgent PCI Indication: NSTE - ACS Interventional Findings * Procedure detail: We engaged left main artery using XB 3.5 guide catheter. IV heparin was used to maintain an ACT above 250 seconds. A 0.014 run-through guidewire was used to cross the mid LAD stenosis. We predilated the stenosis with 2.5 x 12 mm semicompliant balloon. At this time, we noted that the second diagonal artery had lost flow because of plaque shift. This was followed by placement of 2.75 x 15 mm resolute [place] drug-eluting stent in the LAD. Attempts at gaining access to the lost diagonal artery were unsuccessful as patient was not able to lay flat secondary to confusion after receiving sedation. As it was a small to medium sized vessel and patient did not have any significant change in the EKG, we decided to treat it medically. At this time final angiogram was performed that showed excellent stent expansion, no residual stenosis and ONELIA-3 flow. Guidewire and guide catheter were removed. Femoral artery sheath was sutured in place for removal later. * Mid Left Anterior Descending Coronary Artery to mLAD: 70% stenosis treated with AB TREK 2.50X12 RX BALLOON and MDT R HIEN 2.75X15 ELOISE. 0% residual stenosis, ONELIA: 3 flow. Conclusions 1. There is severe mid LAD stenosis s/p successful revascularization with ELOISE x 1. 2. Mid Left Anterior Descending Coronary Artery to mLAD was treated with Balloon and Drug Eluting Stent. Recommendations * Transfer to [facility]. * Continue aspirin and Plavix for atleast 1 year. * Beta wan and Lisinopril. * High intensity statin therapy. * Outpatient cardiology follow up. Interventional RX Recommendation: PCI w/o planned CABG Diagnostic RX Recommendation: PCI w/o planned CABG Anticoagulation: Heparin Pressures Phase:Rest AO : 144 / 91 ( 111 ) @ 5:45:00 AM 91 / 58 ( 62 ) @ 5:46:00 AM 126 / 67 ( 94 ) @ 6:02:00 AM 123 / 67 ( 91 ) @ 6:06:00 AM 116 / 54 ( 81 ) @ 6:13:00 AM Clinical Evaluation EBL: 5mL-10mL Procedural Details Procedure Consent Obtained. Pre-Procedure Time Out. Identified patient by full name and date of as verbalized by the patient/guarantor. Does the consent match the physician's order: Yes. Accurate & Complete Informed Consent: Yes. Inpatient/Outpatient History & Physical on Chart: Yes. If H&P is completed, is and addenduem needed: No; If yes, is the addendum complete: N/A. Visualize and Verify Site with Patient/Guarantor: N/A. Relevant Radiology Images available: Yes. Pre-op teaching completed and patient verbalized understanding. The risks, benefits, and alternatives of sedation and/or procedure were discussed by physician. The patient agrees to continue. Current Diagnosis : NSTEMI. Procedure started. Correct patient, site and procedure confirmed by cath team. Current diagnosis: NSTEMI. PERRLA. Strong, equal hand disability liaison officer bilaterally. Lungs clear x 5 lobes. IV Site on Arrival: 18 gauge in the right anticubital. IV Fluids: 0.9% NaCl at KVO. 0 mL infused prior to laboratory director. Pre Procedural Pulses: bilateral dorsalis pedis was 3+. Pre Procedural Pulses: bilateral posterior tibial was 3+. Pre Procedural Pulses: bilateral radial was 3+. Oxygen started at 2liters/min via nasal canula. bilateral groins was prepped with chloroprep then draped in the usual sterile fashion. Physician notified. Baseline sample Acquired. HR: 87 BPM. Physician arrived. Equipment: 5F - Femoral. Kit, Micropuncture. Heparinized Saline (2 units/mL), 1000 mL bag. Cardiac Cath Pack. ACIST Manifold Kit Model BT 2000. Baseline sample Acquired. HR: 78 BPM. Physician scrubbed in. Immediate Pre-Procedure Time Out. Correct Patient: Yes; Correct Procedure: Yes; Correct Site: Yes; Correct Patient Position: Yes; Correct Supplies: Yes; Dried Flammable Prep: Yes; Blood Products Available: No;. Lidocaine 1% infiltrated to the right groin. Arterial access obtained with micropuncture set. ACT drawn. Results 111 seconds. Therapeutic limits - pre-heparin administration 90-150 seconds and monitoring heparin during a vascular procedure >250 seconds. A 6 beninese JR4 catheter in over wire. Multiple views taken of right coronary artery. Catheter out. 6 beninese XB 3.5 guide catheter was inserted over the wire. Multiple views taken of left coronary artery. Runthrough inserted to the Mid LAD. Inflation number : 1 A AB TREK 2.50X12 RX BALLOON was prepped and advanced across the Mid LAD , then inflated to 12 TITO for 0:20 seconds. Balloon out. Inflation Number : 2 A TONE Blacn HIEN 2.75X15 ELOISE -Lot Number# [id number] was prepped and advanced across the Mid LAD. The stent was deployed at 12 TITO for 0:18 seconds. Stent expiration date: 05/18/2022. Stent balloon out over wire. Second runthrough wire inserted into the diagonal. Second runthrough out. Runthrough wire in the LAD redirected to the Diag. Second runthrough reinserted. Runthrough wires out. Catheter out. Nitro increased to 20mcg/min. ACT drawn. Results seconds. Therapeutic limits - pre-heparin administration 90-150 seconds and monitoring heparin during a vascular procedure >250 seconds. A Suture was successful obtaining hemostatsis at the Right Femoral artery insertion site. Sheath(s) sutured into position with 2-0 silk and sterile 4x4's and Op-site applied over the site. No oozing or signs and symptoms of hematoma noted. Arterial sheath flushed and connected to tranducer and pressure bag with heparinized saline. Post Procedure: Pulses reassessed and unchanged. PERRLA. Strong, equal hand disability liaison officer bilaterally. No VTE prophylaxis required. Contrast type used: Omnipaque 300 mgI/mL, 500 mL bottle. PCI Indication: NSTE. Post-op diagnosis: Non stemi. Complications: None. Estimated blood loss: 5mL-10mL. ACT drawn. Results 352 seconds. Therapeutic limits - pre-heparin administration 90-150 seconds and monitoring heparin during a vascular procedure >250 seconds. Medication's Wasted: Other = Fentanyl 50 mcg. Medication's Wasted: Other = Morphine 2 mg. Medication's Wasted: Other = Hydralazine 10 mg. Total IV fluids: 100 mL. Vital chart was stopped. Procedure completed. Patient transferred by bed to 1st floor. Patient became nauseated upon moving her to her bed. Access Site Site: Right Femoral artery Sheath Size: 6 Fr Hemostasis Method: Suture Hemostasis Success: Successful Procedure Medications Start: 10:30 AM Stop: 10:30 AM Medication: Fentanyl Amount: 12.5 mcg Route: I.V. Start: 10:43 AM Stop: 10:43 AM Medication: Heparin Amount: 5000 units Route: I.V. Start: 10:56 AM Stop: 10:56 AM Medication: Heparin Amount: 1000 units Route: I.V. Start: 10:58 AM Stop: 10:58 AM Medication: Hydralazine Amount: 10 mg Route: I.V. Start: 11:02 AM Stop: 11:02 AM Medication: Fentanyl Amount: 12.5 mcg Route: I.V. Start: 11:03 AM Stop: 11:03 AM Medication: Versed Amount: 1 mg Start: 11:07 AM Stop: 11:07 AM Medication: Versed 1 mg and Fentanyl 25 mcg Amount: 1 Route: I.V. Start: 11:10 AM Stop: 11:10 AM Medication: Nitrogylcerin Amount: 10 mcg/min Route: I.V. drip Start: 11:13 AM Stop: 11:13 AM Medication: Morphine Amount: 2 mg Route: I.V. Start: 11:28 AM Stop: 11:28 AM Medication: Zofran (ondansetron) Amount: 4 mg Route: I.V. I, the attending physician, have reviewed and verified all procedure medications. Yes, all medications given per verbal order History/Risk Factors Hypertension: Yes Dyslipidemia: Yes Peripheral Arterial Disease (PAD): No Myocardial Infarction ([place]): No Obesity: No Renal Disease: No Tobacco Use: Former Prior Interventions PCI: No CABG: No Valve Surgery: No Report Signatures Finalized by Keshawn Kohli MD on 10/11/2020 06:34 PM
--- NOTE | 2020-09-27 10:34 | W.PM.OPSUD ---
Surgery/Procedure H&P Update DATE OF PROCEDURE: September 27, 2020 DATE H&P PERFORMED: 09/27/20 H&P UPDATE INFORMATION: I have reviewed H&P completed within last 30 days, I have examined patient prior to procedure and No changes to prior documentation PREOP DIAGNOSIS: NSTEMI/ Heart failure PRIMARY INDICATION FOR PROCEDURE: NSTEMI/ Heart failure PLANNED PROCEDURE: Operation Date: 09/27/20 10:00 Proposed Procedures p Cardiac Catheterization(Left) - Keshawn Kohli M.D Possible percutaneous coronary intervention PATIENT REASSESSED PRIOR TO SEDATION, WITH NO CHANGE NOTED: Yes PHYSICAL EXAM: alert, oriented x 3 and clear to auscultation bilaterally AIRWAY EVAL/ANESTHESIA PLAN: ASA III, Monitored Anesthesia, Local Anesthesia, Risks, benefits & alternatives of sedation and/or procedure discussed and Patient agrees to continue as planned
--- NOTE | 2020-09-27 13:04 | PC.NURSE ---
Patient left floor at 10:06 this morning for heart cath procedure. Returned back to the floor at 11:45am. Received report from BRIANNA Anna. BRIANNA Brizuela RN, looked at site together, sheath is present in right groin, patient has no hematoma,no oozing and dressing is intact. Patient is on a nitro gtt to eliminate chest pain. Patient has been nauseated and vomiting sense returning to the floor. Patient has family at bedside. Nurse will continue to monitor Q15min
[2020-09-27] MEDS: ondansetron 2 mg/ML SDV 2 mL 4 MG IVP (13:29)
[2020-09-27 15:22] LABS: Partial Thromboplastin Time > 250.0 SECONDS (23.9-36.7)
--- NOTE | 2020-09-27 15:33 | P.PN_ITS ---
Subjective Subjective: Interval history: Patient was seen after returning from cath. She had received versed after which she was quite drowsy. No fever, chills, nausea or vomiting. Medications: Reviewed: Yes Vitals/I&O/Wt Last Vital Signs Temp 98.0 F 09/27/20 12:00 Pulse 124 H 09/27/20 12:59 Resp 19 H 09/27/20 12:30 BP 149/73 09/27/20 12:30 Pulse Ox 93 09/27/20 12:59 09/27/20 09/27/20 09/27/20 06:59 14:59 22:59 Intake Total 119.583 / 119.583 Balance 119.583 / 119.583 Weight last 48 hrs Weight 58.06 kg Physical Exam Narrative: EXAM NARRATIVE: General: Sleeping post cath HEENT: Grossly unremarkable Non-labored respiration NSR Femoral access Distal pulses 2+ No edema Data : 09/27/20 04:41 09/27/20 04:41 A&P Assessment and plan (1) NSTEMI (non-ST elevated myocardial infarction): Status: Acute (2) Left bundle branch block: Status: Acute (3) Hypertensive urgency: Status: Acute (4) JEANNINE (acute kidney injury): Status: Acute (5) Panic attack: Status: Acute Additional A&P Information NSTEMI s/p PCI/LAD stent - Cath in am - Post cath care - Continue meds as per cardiology Acute kidney injury - Creatinine 0.9 - BMP in AM DM - Sliding scale insulin - Hold metform > 48hr - Diabetic/cardiac diet once alert HTN - Continue current meds - Adjust as needed - PRN hydralazine Hypothyroidism - Levothyroxine 75mcg po daily - Repeat TSH in 4-6 weeks DVT ppx - Heparin per cards Attestations Medical Necessity Statement*: will require further hospitalization for management of non ST elevation NV status post angiogram this morning Time Spent in Patient Care: Greater than 35 minutes (>than 50% of time spent in counselling and/or direct pt care on unit) . Coding Level of Care Code Acute Gas Pumping Station Supervisor for Chg Fwd Diagnoses NSTEMI (non-ST elevated myocardial infarction) I21.4 Left bundle branch block I44.7 Hypertensive urgency I16.0 JEANNINE (acute kidney injury) N17.9 Panic attack F41.0
[2020-09-27] MEDS: clopidogrel 300 mg Tablet PO (16:28)
[2020-09-27 16:33] LABS: Glucose Point of Care 325 mg/dL (70-110)
[2020-09-27 17:31] LABS: Partial Thromboplastin Time 136.3 SECONDS (23.9-36.7)
[2020-09-27 19:33] LABS: Partial Thromboplastin Time 54.4 SECONDS (23.9-36.7)
[2020-09-27] MEDS: fentaNYL 50 mcg/mL INJ 2mL IVP (19:52)
[2020-09-27 20:54] LABS: Glucose Point of Care 291 mg/dL (70-110)
[2020-09-27] MEDS: atorvastatin 40 mg Tablet 80 MG PO (21:06)
[2020-09-27] MEDS: ALPRAZolam 0.25 mg Tablet PO (21:06)
--- NOTE | 2020-09-27 21:56 | PC.NURSE ---
Sheath removed from right groin at 2003. Manual pressure held for 20 minutes. VSS. Patient tolerated well. No bleeding or hematoma. Dressing applied. Patient educated on post-cath activity restrictions and verbalized understanding.
--- NOTE | 2020-09-28 02:51 | PC.NURSE ---
Patient ambulated with nurse. VSS. No bleeding or hematoma to right groin.
[2020-09-28 04:00] VITALS: BP 152/66; PULSE 86; RESP 18; O2SAT 95
[2020-09-28] MEDS: pantoprazole DR 40 mg Tablet PO (04:53)
[2020-09-28] MEDS: levothyroxine 75 mcg Tablet PO (04:54)
[2020-09-28] MEDS: amlodipine 10 mg Tablet PO (04:54)
[2020-09-28 06:00] VITALS: PULSE 98
[2020-09-28 06:05] LABS: Basophils # 0.1 10^3/uL (0.0-0.1); Basophils % 0.4 %; Eosinophils % 0.4 %; Hematocrit 33.8 % (37.0-47.0); Hemoglobin 11.1 g/dL (11.5-15.3); Lymphocytes # 2.1 10^3/uL (0.8-4.8); Lymphocytes % 18.1 %; Mean Corpuscular HGB Conc 32.8 g/dL (30.0-36.0); Mean Corpuscular Volume 91.4 fL (81-99); Mean Platelet Volume 10.8 fL (7.4-10.4); Monocytes % 8.4 %; Neutrophils # 8.22 10^3/uL (1.8-7.7); Neutrophils % 72.3 %; Nucleated Red Blood Cells % 0 %; Platelet Count 206 10^3/cmm (130-400); Red Cell Distribution Width 11.8 % (12.1-15.1); White Blood Count 11.4 10^3/uL (4.0-10.0)
[2020-09-28 06:36] LABS: Alanine Aminotransferase 42 U/L (0-33); Albumin Level 3.4 g/dL (3.5-5.2); Alkaline Phosphatase 70 IU/L (35-105); Aspartate Amino Transferase 98 U/L (0-32); Blood Urea Nitrogen 13 mg/dL (8-23); Calcium 7.6 mg/dL (8.5-10.5); Carbon Dioxide 19 mmol/L (22-29); Chloride 110 mmol/L (98-107); Globulin 2.1 g/dL (1.3-4.6); Glucose 139 mg/dL (65-115); Magnesium 1.9 mg/dL (1.7-2.3); Osmolality Calculated 292 mOsm/kg (285-295); Sodium 140 mmol/L (136-145); Total Bilirubin 0.4 mg/dL (0.15-1.2); Total Protein 5.5 g/dL (6.6-8.7)
[2020-09-28 06:51] LABS: Glucose Point of Care 324 mg/dL (70-110)
[2020-09-28 07:05] VITALS: BP 142/72; PULSE 92; RESP 20; TEMP 36.9; O2SAT 96
--- NOTE | 2020-09-28 08:10 | PM.PN ---
Subjective Subjective: Interval history: Patient is doing well. She denies complaints of chest pain, shortness of breath or palpitations. She underwent successful revascularization of the mid LAD yesterday with ELOISE x1. Femoral access site is normal Vitals/I&O/Wt Last Vital Signs Temp 98.4 F 09/28/20 07:05 Pulse 92 09/28/20 07:05 Resp 20 H 09/28/20 07:05 BP 142/72 09/28/20 07:05 Pulse Ox 96 09/28/20 07:05 09/27/20 09/28/20 09/28/20 22:59 06:59 14:59 Intake Total 1583.333 / 1702.916 Balance 1583.333 / 1702.916 Weight last 48 hrs Weight 128 lb Physical Exam Narrative: EXAM NARRATIVE: GENERAL: Awake, alert, oriented, in no acute distress. [] HEENT: Normocephalic, atraumatic, PERRLA. [] CHEST: Clear to auscultation bilaterally. [] CVS: S1, S2 normal. No murmur, rubs, gallops. Peripheral pulses palpable. [] ABDOMEN: Soft, nontender. Nondistended. Bowel sounds heard. [] NEUROVASCULAR: Awake, alert. Power 5/5 all extremities. DTR+ [] EXTREMITIES: No edema. [] Data : 09/28/20 04:19 09/28/20 04:19 A&P Assessment and plan (1) JEANNINE (acute kidney injury): Status: Acute (2) Hypertensive urgency: Status: Acute (3) NSTEMI (non-ST elevated myocardial infarction): Status: Acute (4) Congestive heart failure: Status: Acute (5) Left bundle branch block: Status: Acute (6) Hypercholesterolemia: Status: Acute Patient has presented with NSTEMI with significant delta of troponins and chest pain. She has baseline left bundle branch block. She also was in hypertensive urgency. She underwent successful revascularization with ELOISE x1 of the mid LAD. Patient had some nausea and vomitting yesterday that has resolved. With deployment of the stent, she had loss of small to medium sized diagonal artery but she remained stable without significant symptoms. Had discussion Blood pressure is relatively better controlled now. Aspirin and Plavix for atleast 1 year. I had a discussion with the patient regarding the need for compliance as otherwise she will be at risk for stent thrombosis. Uptitrate hydralazine to 100mg TID. Can restart her home lisinopril/metoprolol and HCTZ ECHO ordered Thank you for involving us with care of this patient. Patient is ready to be discharged from cardiology standpoint. Please call with questions. Attestations Medical Necessity Statement*: Care expected to cross 2 midnights Coding Level of Care Code Acute Repairer Engine Production for Melissa Ruiz Diagnoses JEANNINE (acute kidney injury) N17.9 Hypertensive urgency I16.0 NSTEMI (non-ST elevated myocardial infarction) I21.4 Congestive heart failure I50.9 Left bundle branch block I44.7 Hypercholesterolemia E78.00
[2020-09-28] MEDS: isosorbide mononitrate ER 30 mg Tablet PO (08:13)
[2020-09-28] MEDS: aspirin 81 mg EC Tablet PO (08:13)
[2020-09-28] MEDS: hyDRALAzine 50 mg Tablet PO (08:14)
[2020-09-28] MEDS: clopidogrel 75 mg Tablet PO (08:14)
[2020-09-28] MEDS: sertraline 50 mg Tablet PO (08:14)
--- NOTE | 2020-09-28 08:16 | USCV_ITS ---
Tari Hyatt Age: 64 Gender: F : 1955 Exam Date: 09/28/2020 10:39 Ordering Phys: Keshawn Kohli M.D ([email or web address]) Technologist: Exam Location: [facility] [place] Indication: POST NSTEMI BP: 142 / 72 HR: 74 Rhythm: Sinus Technical Quality: Adequate MEASUREMENTS (Male / Female) Normal Values 2D ECHO LV Diastolic Diameter PLAX 4.5 cm 4.2 - 5.9 / 3.9 - 5.3 cm LV Systolic Diameter PLAX 2.4 cm IVS Diastolic Thickness 1.4 cm 0.6 - 1.0 / 0.6 - 0.9 cm IVS Systolic Thickness 1.4 cm LVPW Diastolic Thickness 1.1 cm 0.6 - 1.0 / 0.6 - 0.9 cm LVPW Systolic Thickness 1.7 cm LVOT Diameter 2.0 cm LV Ejection Fraction 2D Teich 78.6 % LV Ejection Fraction MOD 2C 59.0 % LV Ejection Fraction 2C AL 59.3 % LA Diameter 2.5 cm LA Width 2.8 cm LA Height 3.5 cm RA Width 3.1 cm RA Height 3.9 cm M-MODE LV Diastolic Diameter MM 4.0 cm 4.2 - 5.9 / 3.9 - 5.3 cm LV Systolic Diameter MM 3.0 cm LV Ejection Fraction MM Teich 49.6 % IVS Diastolic Thickness MM 0.9 cm 0.6 - 1.0 / 0.6 - 0.9 cm IVS Systolic Thickness MM 1.3 cm LVPW Diastolic Thickness MM 1.0 cm 0.6 - 1.0 / 0.6 - 0.9 cm LVPW Systolic Thickness MM 1.4 cm RV Diastolic Diameter MM 1.5 cm Aortic Annulus Diameter 3.0 cm LA Ao Ratio MM 0.9 MV E Point Septal Separation 0.6 cm DOPPLER AV Peak Velocity 128.0 cm/s LVOT Peak Velocity 92.0 cm/s AV Area Cont Eq vti 2.1 cm squared AV Area Cont Eq pk 2.2 cm squared MV Area PHT 5.0 cm squared Mitral E to A Ratio 0.7 MV E' Velocity 37.0 cm/s Mitral E to MV E' Ratio 10.6 Mitral E to LV E' Lateral Ratio 8.2 Mitral E to LV E' Septal Ratio 14.9 TR Peak Velocity 223.0 cm/s TR Peak Gradient 19.9 mmHg TV Peak E Velocity 92.0 cm/s Right Atrial Pressure 3.0 mmHg Pulmonary Artery Systolic Pressu 22.9 mmHg PV Peak Velocity 62.0 cm/s FINDINGS Left Ventricle Normal left ventricular size. LV systolic function is mild to moderately reduced with EFof 40-45%. There is mild global hypokinesis. Septal motion is consistent with conduction abnormality, there is moderate hypokinesis of the apical wall. Left ventricular hypertrophy is noted. Grade 1 diastolic dysfunction is seen Right Ventricle The right ventricle is normal in size and function. Right Atrium The right atrium is normal in size. Left Atrium The left atrium is normal in size. Mitral Valve Structurally normal mitral valve without significant stenosis or prolapse. There is mild mitral regurgitation. Aortic Valve Structurally normal aortic valve without significant sclerosis or stenosis. There is no aortic regurgitation. Tricuspid Valve Structurally normal tricuspid valve without significant stenosis or regurgitation. Insufficient TR jet to calculate RVSP Pulmonic Valve Structurally normal pulmonic valve without significant stenosis. There is no pulmonic regurgitation. Pericardium Normal pericardium without effusion. Aorta Normal ascending aorta dimension. CONCLUSIONS LV systolic function is moderately reduced with EF of 40-45%. Above mentioned wall motion abnormalties Grade 1 diastolic dysfunction Left ventricular hypertrophy Mild mitral regurgitation No comparison studies are available Keshawn Kohli MD (Electronically Signed) Final Date: 28 September 2020 11:28 S
[2020-09-28] MEDS: metoprolol tartrate 50 mg Tablet PO (09:17)
[2020-09-28 10:32] VITALS: PULSE 71; O2SAT 95
[2020-09-28 11:10] VITALS: BP 148/68; PULSE 74; RESP 21; TEMP 36.7; O2SAT 94
[2020-09-28 12:11] LABS: Glucose Point of Care 136 mg/dL (70-110)
[2020-09-28 15:02] VITALS: BP 168/86; PULSE 68; RESP 23; TEMP 36.7; O2SAT 96
[2020-09-28 16:46] LABS: Glucose Point of Care 307 mg/dL (70-110)
--- NOTE | 2020-09-28 17:01 | PC.NURSE ---
meds to bed delivered.
--- NOTE | 2020-09-28 22:09 | P.DS_ITS ---
Discharge Providers Date of Admission: 09/27/20 01:17 Date of Discharge: September 28, 2020 Attending Provider at Admission: Bridger Moore MD Attending Provider at Discharge: Delmar Anderson Primary Care Provider: Eagle Doyle Diagnoses at Discharge Discharge Diagnosis (1) JEANNINE (acute kidney injury): Status: Acute (2) Hypertensive urgency: Status: Acute (3) NSTEMI (non-ST elevated myocardial infarction): Status: Acute (4) Congestive heart failure: Status: Acute (5) Left bundle branch block: Status: Acute (6) Hypercholesterolemia: Status: Acute Reason for Visit Reason for Visit: NONSTEMI Hospital Course Hospital Course Pleasant 64-year-old lady with history of CAD, left heart catheterization 04/07 with moderate to severe mid LAD 60-70% stenosis. Could not tolerate FFR at that time. Stress test later showed elevated 3 times daily ratio. EF is 35%. Other history includes hypothyroidism and difficult to control hypertension. He was transferred here for assessment from [facility] [place] where she presented due to anxiety, tachypnea, respiratory distress, with noted troponin elevation 18-68 at 2 hours. CTA negative for PE. Required Catapres IV and metoprolol 25 mg for hypertensive urgency with systolic blood pressure 200. Noted with hyperglycemia, sugars in the 350s. TSH noted to be 5. Mild JEANNINE with creatinine increased from 1.9-1.5. On admission here was treated for NSTEMI. Assessed by cardiology, and with improvement in renal function, with holding lisinopril, HCTZ, mild fluid challenge due to dehydration, was additionally assessed by coronary angiography with revascularization of LAD with ELOISE placement. Did well subsequently. Continues on aspirin and Plavix. Has had some mild intermittent cough, and noted to have very small blood clot. Instructed to seek medical attention in case of any worsening of bleeding. Will need to continue aspirin and Plavix for at least 1 year. Blood pressure control was optimized with continuation of hydralazine, lisinopril metoprolol. HCTZ. She otherwise was doing well. Had no recurrence of shortness of breath or chest pain. Requested to return home. Please continue optimization of CAD risk factors including diabetes, HTN. Lasix is given for symptomatic control of CHF. Please reassess volume status at next visit. Her levothyroxine dose was increased to 75 mcg. Please also follow-up her thyroid function studies. Physical Exam Const: COMMON NORMALS: no acute distress and patient oriented x3 GENERAL APPEARANCE: cooperative and comfortable OTHER: Denies any complaints. HENMT: COMMON NORMALS: oropharynx normal Neck/C-Spine: COMMON NORMALS: no JVD Resp: COMMON NORMALS: normal respiratory effort and clear to auscultation bilaterally AUSCULTATION: clear to auscultation bilaterally Cardio: COMMON NORMALS: no JVD, regular rhythm, S1 normal heart sound present, S2 normal heart sound present and No murmurs present (Cardio) RHYTHM: regular rhythm HEART SOUNDS: S1 normal heart sound present and S2 normal heart sound present GI: COMMON NORMALS: Normal to inspection, nondistended, normoactive bowel sounds present, Soft to palpation and non-tender PALPATION: Yes Soft to palpation Extremity: COMMON NORMALS: no joint enlargement and no pedal edema Neuro: COMMON NORMALS: patient oriented x3 and moves all extremities Skin: COMMON NORMALS: no rashes or lesions noted GENERAL SKIN EXAM: no rashes or lesions noted Discharge Data Data Completed and Pending: Completed Studies During Hospitalization Category Date Time Status CV echo complete* [id number] Routine Ultrasound 09/28/20 08:16 Completed Pending at discharge Category Date Time Status [employer] request for service Routin e Exams 09/27/20 09:49 Taken Labs from last 24 hours 09/28/20 09/28/20 09/28/20 16:32 11:09 06:43 WBC RBC Hgb Hct MCV MCH MCHC RDW Plt Count MPV Neut % (Auto) Lymph % (Auto) [place] % (Auto) Eos % (Auto) Baso % (Auto) Neut # (Auto) Lymph # (Auto) [place] # (Auto) Eos # (Auto) Baso # (Auto) Nucleated RBC % (a uto) Nucleated RBCs # Sodium Potassium Chloride Carbon Dioxide Anion Gap BUN Creatinine GFR Calculation Glucose POC Glucose 307 H 136 H 324 H Calculated Osmolal ity Calcium Magnesium Total Bilirubin AST ALT Alkaline Phosphata se Total Protein Albumin Globulin 09/28/20 09/28/20 04:19 04:19 WBC 11.4 H RBC 3.70 L Hgb 11.1 L Hct 33.8 L MCV 91.4 MCH 30.0 MCHC 32.8 RDW 11.8 L Plt Count 206 MPV 10.8 H Neut % (Auto) 72.3 Lymph % (Auto) 18.1 [place] % (Auto) 8.4 Eos % (Auto) 0.4 Baso % (Auto) 0.4 Neut # (Auto) 8.22 H Lymph # (Auto) 2.1 [place] # (Auto) 1.0 H Eos # (Auto) 0.0 Baso # (Auto) 0.1 Nucleated RBC % (a uto) 0 Nucleated RBCs # 0.0 Sodium 140 Potassium 4.0 Chloride 110 H Carbon Dioxide 19 L Anion Gap 15.0 BUN 13 Creatinine 0.8 GFR Calculation 72.0 L Glucose 139 H POC Glucose Calculated Osmolal ity 292 Calcium 7.6 L Magnesium 1.9 Total Bilirubin 0.4 AST 98 H ALT 42 H Alkaline Phosphata se 70 Total Protein 5.5 L Albumin 3.4 L Globulin 2.1 Vitals: Last Vital Signs Temp 98.0 F 09/28/20 15:02 Pulse 68 09/28/20 15:02 Resp 23 H 09/28/20 15:02 BP 168/86 09/28/20 15:02 Pulse Ox 96 09/28/20 15:02 Discharge Plan Discharge Patient Disposition: Home Condition: Stable Prescriptions: New atorvastatin 40 mg Tablet 80 mg PO BEDTIME Qty: 30 RF: 3 isosorbide mononitrate 30 mg Tablet Extended Release 24 Hr 30 mg PO DAILY Qty: 90 RF: 0 clopidogrel 75 mg Tablet 75 mg PO DAILY Qty: 90 RF: 0 levothyroxine 75 mcg Tablet 75 mcg PO QAM Qty: 30 RF: 2 Lasix 20 mg tablet 20 mg PO DAILY PRN (Reason: edema) Qty: 90 RF: 0 Continued nitroglycerin 0.4 mg tablet, sublingual 0.4 mg SUBLINGUAL Q5M PRN (Reason: Chest Pain) RF: 0 aspirin [Adult Aspirin Regimen] 81 mg tablet,delayed release (DR/EC) 81 mg PO QPM RF: 0 omeprazole 40 mg capsule,delayed release(DR/EC) 40 mg PO QAM RF: 0 lisinopril 40 mg tablet 40 mg PO QAM RF: 0 metoprolol tartrate 50 mg tablet 50 mg PO BID RF: 0 amlodipine 10 mg tablet 10 mg PO QAM RF: 0 metformin 500 mg Tablet 500 mg PO BIDWM RF: 0 hydralazine 50 mg Tablet 50 mg PO BID RF: 0 magnesium 250 mg Tablet 250 mg PO DAILY RF: 0 sertraline 50 mg Tablet 50 mg PO DAILY RF: 0 Vitamin D3 50 mcg (2,000 unit) Tablet 50 mcg PO DAILY RF: 0 hydrochlorothiazide 12.5 mg Tablet 12.5 mg PO DAILY RF: 0 Discontinued levothyroxine 50 mcg capsule 50 mcg PO QAM RF: 0 lovastatin 20 mg Tablet 20 mg PO 1800 RF: 0 Discharge Orders: Discharge Order (Routine); Ordered 09/28/20 Ordered By: Delmar Anderson Referrals: Keshawn Kohli M.D [Physician] - 1 month (YOU HAVE A FOLLOW UP APPOINTMENT WITH DR. KOHLI ON MondayOctober AT 0315.IF YOU HAVE ANY QUESTIONS OR NEED TO RESCHEDULE PLEASE CALL [phone].) Eagle Doyle [Primary Care Provider] - 4-7 days (YOU HAVE A FOLLOW UP APPOINTMENT WITH DR. DOYLE ON MondaySeptember AT 800 AM.IF YOU HAVE ANY QUESTIONS OR NEED TO RESCHEDULE PLEASE CALL [phone].) Mayda Mijares FNP [Nurse Practitioner] - 1 week (YOU HAVE A FOLLOW UP APPOINTMENT WITH [facility] ON MondaySeptember AT 0315.IF YOU HAVE ANY QUESTIONS OR NEED TO RESCHEDULE PLEASE CALL [phone].) Discharge Diet: Cardiac Discharge Activity: Increase activity as tolerated Patient Instructions: Furosemide (By mouth), Levothyroxine (By mouth), Aspirin (By mouth), Isosorbide Mononitrate (By mouth), Atorvastatin (By mouth), Clopidogrel (By mouth), Myocardial Infarction (DC), Heart Failure (DC), Left Heart Catheterization (DC), Coronary Angioplasty (DC), Acute Kidney Injury (DC), Hypertension (DC), Post Angiogram Home Care Instructions Activity Restrictions/Additional Instructions: Please follow-up with the heart doctor in office. In case you experience any chest pain or pressure, any shortness of breath, bleeding, coughing up large amounts of blood, or any other abnormal symptoms, please seek medical attention immediately. Please follow-up with your primary care doctor and have them recheck your kidney function. Continue optimization of risk factors for coronary disease, optimization of control of diabetes, hypertension. Reassessment of congestive heart failure symptoms. Please have your primary care doctor also reassess your thyroid function after adjustment of the thyroid medication. Please measure weight daily. 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 Discharge Attestations Time Spent in Discharge Care*: greater than 30 min Quality Metrics Clinical Quality Measures During this hospital stay, did patient experience: AMI Clinical Trial Participant: No Contraindication to aspirin (AMI): Aspirin given Contraindication to statin: Statin prescribed Contraindication to PCI: PCI performed Coding Level of Care Code Acute [facility] note Diagnoses JEANNINE (acute kidney injury) N17.9 Hypertensive urgency I16.0 NSTEMI (non-ST elevated myocardial infarction) I21.4 Congestive heart failure I50.9 Left bundle branch block I44.7 Hypercholesterolemia E78.00
== END 2020-09-28 17:02 | disposition home or self-care (01) | DRG 247 ==
PROVIDERS: Hospitalist; Internal Medicine; Student in an Organized Health Care Education/Training Program; Admitting Provider Internal Medicine; PCP Family Medicine; Visit Provider Internal Medicine
PROC: 027034Z Dilation of Coronary Artery, One Artery with Drug-eluting Intraluminal Device, Percutaneous Approach (ICD-10-PCS; principal; 2020-09-27 10:00)
PROC: 027034Z Dilation of Coronary Artery, One Artery with Drug-eluting Intraluminal Device, Percutaneous Approach (ICD-10-PCS; 2020-09-27 10:00)
DX: I21.4 Non-ST elevation (NSTEMI) myocardial infarction (principal); N17.9 Acute kidney failure, unspecified; I25.10 Atherosclerotic heart disease of native coronary artery without angina pectoris; F41.0 Panic disorder [episodic paroxysmal anxiety]; I11.0 Hypertensive heart disease with heart failure; I50.9 Heart failure, unspecified; E11.65 Type 2 diabetes mellitus with hyperglycemia; E78.5 Hyperlipidemia, unspecified; E78.00 Pure hypercholesterolemia, unspecified; I44.7 Left bundle-branch block, unspecified; Z87.891 Personal history of nicotine dependence; I16.0 Hypertensive urgency; E86.0 Dehydration; E03.9 Hypothyroidism, unspecified; Z79.82 Long term (current) use of aspirin
CPT/HCPCS: 36415; 36416; 80048; 80053; 82962; 83735; 84484; 85025; 85347; 85730; 93005; 93306; 93452; 93454; 96372; C1725; C1769; C1874; C1887; C1894; C9600; J0360; J1644; J1815; J2250; J2270; J2405; J3010; J3490; J7030; Q0163; Q9967

== ENCOUNTER → 2020-10-05 16:41 | Outpatient (BNVA) | payer MEDICARE, MEDICAID, SELFPAY | PROVIDERS: PCP Family Medicine; Visit Provider Nurse Practitioner Family | DX: I10 Essential (primary) hypertension (principal); I25.10 Atherosclerotic heart disease of native coronary artery without angina pectoris; I50.9 Heart failure, unspecified | CPT/HCPCS: 80048 ==

== ENCOUNTER → 2021-02-15 11:04 | Outpatient (BNVA) | payer MEDICARE, MEDICAID, SELFPAY | PROVIDERS: PCP Family Medicine; Referring Provider Family Medicine; Visit Provider Podiatrist Foot & Ankle Surgery | DX: M79.672 Pain in left foot (principal); M79.671 Pain in right foot | CPT/HCPCS: 73630 ==

== ENCOUNTER → 2021-04-01 14:25 | Outpatient (BNVA) | payer MEDICARE, MEDICAID, SELFPAY | PROVIDERS: PCP Family Medicine; Referring Provider Podiatrist Foot & Ankle Surgery; Visit Provider Specialist | DX: G62.89 Other specified polyneuropathies (principal); Z87.891 Personal history of nicotine dependence | CPT/HCPCS: 95909 ==

== ENCOUNTER → 2022-10-12 15:15 | Outpatient (BNVA) | payer MEDICARE, MEDICAID, SELFPAY | PROVIDERS: PCP Family Medicine; Visit Provider Internal Medicine | DX: I44.7 Left bundle-branch block, unspecified (principal); E78.00 Pure hypercholesterolemia, unspecified; I11.0 Hypertensive heart disease with heart failure; I50.9 Heart failure, unspecified; I25.10 Atherosclerotic heart disease of native coronary artery without angina pectoris; Z91.148 Patient's other noncompliance with medication regimen for other reason; Z87.891 Personal history of nicotine dependence; Z79.82 Long term (current) use of aspirin | CPT/HCPCS: 99214 ==

== ENCOUNTER → 2023-01-12 13:25 | Outpatient (BNVA) | payer MEDICARE, MEDICAID, SELFPAY | PROVIDERS: PCP Family Medicine; Visit Provider Internal Medicine Pulmonary Disease | DX: R06.02 Shortness of breath; J42 Unspecified chronic bronchitis; I50.9 Heart failure, unspecified; I16.0 Hypertensive urgency; I25.10 Atherosclerotic heart disease of native coronary artery without angina pectoris; Z87.891 Personal history of nicotine dependence | CPT/HCPCS: 99204 ==

== ENCOUNTER 2023-02-02 08:34 | Outpatient (CLI) | payer MEDICARE, MEDICAID, SELFPAY ==
[2023-02-02 09:00] VITALS: PULSE 93; RESP 18; O2SAT 98
[2023-02-02] MEDS: albuterol 2.5 mg/3 mL Neb INHALATION (09:00)
[2023-02-02 09:05] VITALS: PULSE 96
--- NOTE | 2023-02-02 12:00 | CT_ITS ---
WS: [id number] LDCT LUNG CANCER SCREENING HISTORY: lung cancer sreening TECHNIQUE: Axial imaging performed from the apices to 1 cm below the costophrenic angles. Coronal and sagittal reformats are submitted with axial MIP series. All CT scans at [facility] use at least one of these dose optimization techniques: automated exposure control; mA and/or kV adjustment per patient size (includes targeted exams where dose is matched to clinical indication); or iterativ e reconstruction. DLP: 36.81 mGy.cm DIvol: Mean CTDIvol: 0.40 (mGy) COMPARISON: None available. Diagnostic quality: Satisfactory Lungs: Micronodule right middle lobe. Noted on image 166 of series 4. No mass or additional nodules. No endobronchial lesions. Mild hyperinflation. Heart: Normal size heart with no pericardial effusion.. Mild coronary artery calcification. Other findings: Mild atherosclerosis aorta. No adrenal mass. Mild suprarenal aortic calcification. IMPRESSION: CT/CT lung screening [id number] LUNG-RADS: 2-Benign Appearance or Behavior FOLLOW UP: 12 Month: Continue annual screening with LDCT OTHER FINDINGS (S MODIFIER): None.
== END 2023-02-02 08:35 | disposition home or self-care (01) ==
PROVIDERS: PCP Family Medicine; Visit Provider Internal Medicine Pulmonary Disease
DX: Z12.2 Encounter for screening for malignant neoplasm of respiratory organs (principal); F17.200 Nicotine dependence, unspecified, uncomplicated
CPT/HCPCS: 71271; 94060; 94618; 94726; 94729; J7613

== ENCOUNTER 2023-05-19 09:14 | Inpatient (IN) | payer MEDICARE, MEDICAID, SELFPAY ==
[2023-05-19] VITALS (86 sets, daily range): BP systolic 102–219; BP diastolic 54–112; PULSE 78–131; RESP 14–30; TEMP 36.9; O2SAT 94–98
--- NOTE | 2023-05-19 09:41 | ECG_ITS ---
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 Measurements Intervals [place] Rate: 88 P: 62 MD: 162 QRS: -39 QRSD: 150 T: 136 QT: 401 QTc: 488 Interpretive Statements SINUS RHYTHM LEFT AXIS DEVIATION [QRS AXIS < -30] LEFT BUNDLE BRANCH BLOCK [120+ ms QRS DURATION, 80+ ms Q/S IN V1/V2, 85+ ms R IN I/aVL/V5/V6] Compared to ECG 09/27/2020 04:06:15 Left-axis deviation now present Electronically Signed On 05-20-2023 6:04:40 SPA DIRECTOR by Cheryl Wright M.D. [id number]
--- NOTE | 2023-05-19 09:41 | USCV_ITS ---
Tari Hyatt Age: 67 Gender: F : 1955 Exam Date: 05/19/2023 11:15 Ordering Phys: Brandon Lopez MD Technologist: Dionisio Walters Exam Location: [facility] [place] Indication: NSTEMI BP: 207 / 109 HR: 96 Rhythm: Other Technical Quality: Adequate MEASUREMENTS (Male / Female) Normal Values 2D ECHO LVOT Diameter 2.0 cm LV Ejection Fraction MOD 2C 43.7 % LV Ejection Fraction 2C AL 41.1 % LA Diameter 3.1 cm LA Width 2.7 cm LA Height 3.8 cm RA Width 2.6 cm RA Height 3.2 cm Aorta at Sinotubular Diameter 2.3 cm IVC Diameter 1.3 cm M-MODE Aortic Annulus Diameter 2.5 cm LA Ao Ratio MM 1.2 MV E Point Septal Separation 0.7 cm DOPPLER AV Peak Velocity 130.0 cm/s LVOT Peak Velocity 84.0 cm/s AV Area Cont Eq vti 1.8 cm squared AV Area Cont Eq pk 2.1 cm squared TR Peak Velocity 224.0 cm/s TR Peak Gradient 20.1 mmHg TR Mean Velocity 177.2 cm/s TR Mean Gradient 13.7 mmHg TR Velocity Time Integral 41.3 cm Right Atrial Pressure 3.0 mmHg Pulmonary Artery Systolic Pressu 23.1 mmHg PV Peak Velocity 134.0 cm/s RV Acceleration Time 0.1 s RV Ejection Time 0.2 s RV AcT/ET 0.3 FINDINGS Left Ventricle . Mildly reduced LV function with EF estimated about 45 to 50% with apical and septal hypokinesis. Paradoxical septal motion. No pericardial effusion. Right Ventricle The right ventricle is normal in size and function. Right Atrium The right atrium is normal in size. Left Atrium The left atrium is normal in size. Mitral Valve Structurally normal mitral valve without significant stenosis or prolapse. There is mild mitral regurgitation. Aortic Valve Structurally normal aortic valve without significant sclerosis or stenosis. There is no aortic regurgitation. Tricuspid Valve Structurally normal tricuspid valve without significant stenosis. There is mild regurgitation. Pulmonary artery systolic pressure is normal. Pulmonic Valve Structurally normal pulmonic valve without significant stenosis. There is no pulmonic regurgitation. Pericardium Normal pericardium without effusion. Aorta Normal ascending aorta dimension. IVC The inferior vena cava appears normal. CONCLUSIONS Asim Maldonado MD (Electronically Signed) Final Date: 19 May 2023 12:03 S
[2023-05-19] MEDS: nitroglycerin drip 50 MG/250 ML PREMIX IV (10:00)
[2023-05-19] MEDS: hyDRALAzine 20 mg/mL INJ 1 mL 10 MG IVP ×2 (10:43→20:21)
[2023-05-19] MEDS: sodium chloride 0.9% 1,000 ML 50 ML IV (10:46)
--- NOTE | 2023-05-19 11:00 | PM.CONSULT ---
Providers/Reason For Consult Consulting Physician/Specialty*: Cardiology Reason for Consult*: Non-ST elevation MT Requesting Physician: Dr. Lopez Attending Physician: Brandon Lopez MD Primary Care Provider: Eagle Quintanilla History of Present Illness History of Present Illness Tari Hyatt is a 67 year old female with history of coronary disease status post PCI and stent placement about a year and a half ago by Dr. Liao. Patient apparently quit taking all her medication except her baby aspirin about a year and a half ago. According to her family she she is taking care of it by [facility]. Patient was admitted to the hospital with a 6-week history of chest discomfort was seen in an outpatient facility where she initially had an EKG which showed left bundle branch block and her troponins were up to 263. Her pain described at the epigastric radiating up to her neck and jaw partially relieved by omeprazole never tried nitroglycerin. Currently pain-free. She had history of diabetes hypertension and hyperlipidemia and has not been taking any medication for both. Review of Systems General: Reports: 10 or more systems reviewed and unremarkable except in HPI and below Const: Reports: body aches and fatigue; Denies: fever(s), chills or night sweats Eyes: Denies: change in vision ENMT: Reports: nasal discharge and nasal congestion; Denies: throat pain or odynophagia Card: Reports: chest pain (heaviness) and dyspnea on exertion Resp: Reports: productive cough GI: Denies: abdominal pain, nausea or heartburn : Denies: flank pain Musc: Denies: neck pain or back pain Skin/Breast: Denies: rash Neuro: Denies: headache(s) or numbness in extremities Psych: Reports: anxiety Endo: Denies: polyuria Gustavo/Lymph: Reports: easy bruising All/Imm: Denies: urticaria Medications/Allergies Home Medications Medication Instructions Recorded Confirmed Last Taken Type aspirin 81 mg tablet,delayed 81 mg PO QPM 03/26/20 01/12/23 04/16/20 21:00 History release (Adult Aspirin Regimen) nitroglycerin 0.4 mg sublingual 0.4 mg sublingual Q5M PRN Chest 03/26/20 01/12/23 Unknown History tablet Pain AFO left lower extremity #1 ea 02/23/21 01/12/23 Unknown Rx albuterol sulfate 90 mcg/actuation 2 puff inhalation Q6H PRN 01/12/23 01/12/23 Unknown History aerosol inhaler (Ventolin HFA) Allergies Allergy/AdvReac Type Severity Reaction Status Date / Time No Known Allergies Allergy Verified 01/12/23 13:34 Current Medications Generic Name Dose Route Start Last Admin Trade Name Freq PRN Reason Stop Dose Admin Sodium Chloride 1,000 mls @ 50 mls/hr 05/19/23 09:45 05/19/23 10:46 Sodium Chloride 0.9% IV 50 mls/hr .Q20H PRÉEZ Administration Nitroglycerin/Dextrose 50 mg in 250 mls @ 0 mls/hr 05/19/23 09:45 05/19/23 10:00 Nitroglycerin Drip IV 10 mcg/min .Q0M PÉREZ 3 mls/hr Administration Protocol Per Protocol PFSH Acute PFSH: Medical History (Updated 05/19/23 @ 11:05 by Asim Dubon MD) Atherosclerotic heart disease of [place] coronary artery without angina pectoris Hypertensive urgency NSTEMI (non-ST elevated myocardial infarction) Abn react-cardiac cath HLD (hyperlipidemia) Diabetes Hypercholesterolemia Left bundle branch block Congestive heart failure Surgical History Presence of stent in LAD coronary artery Hx of cardiac cath Family History Other Hypertension Social History Smoking and tobacco/nicotine status: former use of tobacco/nicotine Quit status (tobacco/nicotine): has quit using Second hand smoke exposure: No Alcohol intake: current Alcohol intake frequency: holidays/special occasions only Substance/Drug Use: current Substance/Drug use frequency: daily Vitals/I&O/Wt Last Vital Signs Pulse 86 05/19/23 10:45 Resp 18 05/19/23 10:45 BP 207/109 05/19/23 10:45 Pulse Ox 97 05/19/23 10:45 O2 Del Method Room Air 05/19/23 10:02 Weight last 48 hrs Weight 96 lb Weight 96 lb Physical Exam Const: COMMON NORMALS: no acute distress, patient oriented x3, no limitations, alert and well nourished HENMT: COMMON NORMALS: normocephalic, atraumatic, hearing grossly normal bilaterally and gingiva normal HEAD & SCALP: normocephalic and atraumatic Eye: COMMON NORMALS: Equal, round and reactive pupils present and EOMs intact bilaterally GENERAL EYE: appearance normal, both eyes and all related structures PUPIL: Yes Equal, round and reactive pupils present Neck/C-Spine: COMMON NORMALS: no JVD GENERAL: Yes normal visual inspection CAROTIDS: Yes normal carotid upstroke Chest: COMMONS NORMALS: normal inspection of the chest CHEST: Yes Symmetrical chest wall rise Resp: COMMON NORMALS: normal respiratory effort, No retractions, clear to auscultation bilaterally and percussion normal EFFORT & INSPECTION: Yes symmetric chest movement AUSCULTATION: clear to auscultation bilaterally PERCUSSION: percussion normal Cardio: COMMON NORMALS: no JVD, regular rate, regular rhythm, S1 normal heart sound present, S2 normal heart sound present, No gallops present (Cardio), No clicks present (Cardio), No murmurs present (Cardio) and No rub (Cardio) RATE: regular rate RHYTHM: regular rhythm HEART SOUNDS: S1 normal heart sound present and S2 normal heart sound present GI: COMMON NORMALS: Normal to inspection, nondistended, normoactive bowel sounds present, Soft to palpation and non-tender PALPATION: Yes Soft to palpation : COMMON NORMALS: Yes no CVA tenderness BLADDER/KIDNEY EXAM: Yes no CVA tenderness Back/Pelvis: COMMON NORMALS: no CVA tenderness Extremity: COMMON NORMALS: normal to inspection, full ROM, no joint enlargement, no clubbing, cyanosis or edema and no calf tenderness Neuro: COMMON NORMALS: patient oriented x3, moves all extremities, no focal motor deficits and no sensory deficits noted SENSORIUM/ORIENTATION: Yes alert GAIT: Yes Normal gait present Psych: COMMON NORMALS: mental status grossly normal APPEARANCE: Yes grossly normal Skin: COMMON NORMALS: no rashes or lesions noted GENERAL SKIN EXAM: no rashes or lesions noted A&P Assessment and plan (1) Atherosclerotic heart disease of [place] coronary artery without angina pectoris: Coronary disease status post PCI and stent placement of a year and a half ago. Now was admitted with chest pain and ruled in for non-ST elevation MT. Patient to continue on aspirin will add beta-wan continue IV nitro patient has been on IV heparin which will be discontinued in preparation for cardiac cath. Will obtain echocardiogram to assess her LV function check for valvular disease (2) Hypertension: Inadequately controlled. Will add beta-wan increased IV nitro drip. Will also use IV hydralazine as needed for blood pressure control. (3) Hypercholesterolemia: Will start the patient on statin atorvastatin 40 mg once a day. LDL goal is less than 70 (4) NSTEMI (non-ST elevated myocardial infarction): Status post previous PCI and stent placement noncompliance with her medications. Will proceed with cardiac cath and possible angioplasty. Risks and benefits were explained in details to her and her family they fully understand the risks and benefits. The patient was instructed also to take her medications. She understood the risk of quitting antiplatelet medication after in case she needs stents and stated that she will take him as present prescribed Coding Level of Care Code 03155 Diagnoses Atherosclerotic heart disease of [place] coronary artery without angina pectoris I25.10 Hypertension I10 Hypercholesterolemia E78.00 NSTEMI (non-ST elevated myocardial infarction) I21.4
[2023-05-19] MEDS: isosorbide mononitrate ER 30 mg Tablet PO (11:12)
[2023-05-19] MEDS: pantoprazole DR 40 mg Tablet PO (11:12)
[2023-05-19] MEDS: metoprolol succinate ER (24 HR) 50 mg Tablet PO (11:12)
--- NOTE | 2023-05-19 11:16 | PM.HP ---
Documented by User: Jimena Brizuela SOLEM Electronique STD 05/19/23 12:44 Providers/Chief Complaint Admitting Physician: Brandon Lopez MD Primary Care Provider: Eagle Quintanilla Chief Complaint: NSTEMI History of Present Illness Tari Hyatt is a 67 year old female transferred to [facility] from [facility] 05/19/23. Patient has a past medical history of diabetes, Hyperlipidemia, left bundle branch block, Hypertensive urgency, CHF, and NSTEMI with stent placed in LAD in September 2020 here at [facility]. Olena presents to [facility] today with the below mentioned complaints. Patient is a 67-year-old female with diabetes, HTN, hyperlipidemia, CHF, hypercholesterolemia, LBBB, tobacco use. She resides in [place] and lives alone. Patient is Alert and able to answer questions appropriately. Patient states that she has been having pain in her stomach that radiates up to her throat since 2 days before Thanks[place]. States she has been taking omeprazole and it has relieved the pain intermittently. She also reports shortness of breath on exertion, actively coughing up yellow thick phlegm. Review of Systems Const: Reports: change in sleep pattern Card: Reports: chest pain, palpitations and dyspnea on exertion Resp: Reports: dyspnea, productive cough and change in phlegm color GI: Reports: abdominal pain, nausea and vomiting : Reports: urinary frequency Psych: Reports: anxiety Medications/Allergies Home Medications Medication Instructions Recorded Confirmed Last Taken Type aspirin 81 mg tablet,delayed 81 mg PO QPM 03/26/20 01/12/23 04/16/20 21:00 History release (Adult Aspirin Regimen) nitroglycerin 0.4 mg sublingual 0.4 mg sublingual Q5M PRN Chest 03/26/20 01/12/23 Unknown History tablet Pain AFO left lower extremity #1 ea 02/23/21 01/12/23 Unknown Rx albuterol sulfate 90 mcg/actuation 2 puff inhalation Q6H PRN 01/12/23 01/12/23 Unknown History aerosol inhaler (Ventolin HFA) Allergies Allergy/AdvReac Type Severity Reaction Status Date / Time No Known Allergies Allergy Verified 01/12/23 13:34 PFSH Acute PFSH: Medical History (Updated 05/19/23 @ 12:48 by Brandon Lopez MD) Hypertension Atherosclerotic heart disease of robinson coronary artery without angina pectoris Hypertensive urgency NSTEMI (non-ST elevated myocardial infarction) Abn react-cardiac cath HLD (hyperlipidemia) Diabetes Hypercholesterolemia Left bundle branch block Congestive heart failure Surgical History (Updated 05/19/23 @ 12:44 by Brandon Lopez MD) History of cataract surgery Presence of stent in LAD coronary artery Hx of cardiac cath Family History Other Hypertension Social History (Updated 05/19/23 @ 12:45 by Brandon Lopez MD) Smoking and tobacco/nicotine status: current some day tobacco/nicotine user Second hand smoke exposure: No Alcohol intake: current Alcohol intake frequency: holidays/special occasions only Vitals/I&O/Wt Last Vital Signs Pulse 88 05/19/23 11:07 Resp 18 05/19/23 10:45 BP 207/109 05/19/23 10:45 Pulse Ox 97 05/19/23 10:45 O2 Del Method Room Air 05/19/23 10:02 Weight last 48 hrs Weight 96 lb Weight 96 lb A&P Assessment and plan (1) NSTEMI (non-ST elevated myocardial infarction): (2) Hypertension: (3) Diabetes: (4) HLD (hyperlipidemia): Coding Level of Care Code 04816 Diagnoses NSTEMI (non-ST elevated myocardial infarction) I21.4 Hypertension I10 Diabetes E11.9 HLD (hyperlipidemia) E78.5 Time Spent (min) 65 Documented by User: Brandon Lopez MD 05/19/23 12:52 Providers/Chief Complaint Chief Complaint: NSTEMI History of Present Illness Tari Hyatt is a 67 year old female transferred to [facility] from [facility] 05/19/23. Patient has a past medical history of diabetes, Hyperlipidemia, left bundle branch block, Hypertensive urgency, CHF, and NSTEMI with stent placed in LAD in September 2020 here at [facility]. Olena presents to [facility] today with the below mentioned complaints. Patient states that she has been having pain in her stomach that radiates up to her throat since 2 days before . States she has been taking omeprazole and it has relieved the pain intermittently. She also reports shortness of breath on exertion, actively coughing up yellow thick phlegm. She reports the chest discomfort increases with exertion. She cannot qualify it anymore abdomen burning. She reports that she does not recall having this discomfort before. With her prior history of coronary artery disease, [place] she states she took her medicine for about 6 months and then stopped everything, worried about FDA approval. Multiple times during the interview she reports that I cannot remember that, my memory is bad. Review of Systems GI: Denies: hematemesis, hematochezia or melena Medications/Allergies Home Medications Medication Instructions Recorded Confirmed Last Taken Type aspirin 81 mg tablet,delayed 81 mg PO QPM 03/26/20 01/12/23 04/16/20 21:00 History release (Adult Aspirin Regimen) nitroglycerin 0.4 mg sublingual 0.4 mg sublingual Q5M PRN Chest 03/26/20 01/12/23 Unknown History tablet Pain AFO left lower extremity #1 ea 02/23/21 01/12/23 Unknown Rx albuterol sulfate 90 mcg/actuation 2 puff inhalation Q6H PRN 01/12/23 01/12/23 Unknown History aerosol inhaler (Ventolin HFA) Allergies Allergy/AdvReac Type Severity Reaction Status Date / Time No Known Allergies Allergy Verified 01/12/23 13:34 PFSH Acute PFSH: Medical History (Updated 05/19/23 @ 12:48 by Brandon Lopez MD) Hypertension Atherosclerotic heart disease of robinson coronary artery without angina pectoris Hypertensive urgency NSTEMI (non-ST elevated myocardial infarction) Abn react-cardiac cath HLD (hyperlipidemia) Diabetes Hypercholesterolemia Left bundle branch block Congestive heart failure Surgical History (Updated 05/19/23 @ 12:44 by Brandon Lopez MD) History of cataract surgery Presence of stent in LAD coronary artery Hx of cardiac cath Family History Other Hypertension Social History (Updated 05/19/23 @ 12:45 by Brandon Lopez MD) Smoking and tobacco/nicotine status: current some day tobacco/nicotine user Second hand smoke exposure: No Alcohol intake: current Alcohol intake frequency: holidays/special occasions only Physical Exam Narrative: General exam is a white female, no distress, denies any chest discomfort currently. HEENT: Atraumatic and normocephalic. Oropharynx clear Neck is supple no lymphadenopathy thyromegaly Cardiovascular regular rate and rhythm without murmur Lungs diminished breath sounds bilaterally. No wheezing. Abdomen is soft positive bowel sounds Extremities no sinus clubbing or edema deferred Skin no rash Neuro no obvious focal deficits Data Other data: EKG was performed at outlying institution. This demonstrated sinus rhythm, rate around 80. Left axis deviation. Left bundle branch block. White blood cell count 13.0, hemoglobin 16.7, platelets 260,000 Sodium 136, potassium 4.2, chloride 98, bicarb 23, BUN 20, creatinine 0.87 Calcium 10.4 LFTs normal with exception of alk phos of 144 Lipase 18 BNP 8589 CTA chest no acute disease Chest x-ray no infiltrate Initial troponin 166, repeat 167, 6-hour 263 A&P Assessment and plan (1) NSTEMI (non-ST elevated myocardial infarction): Patient with non-ST elevation myocardial infarction Aspirin was initiated at outside institution Heparin was initiated at outside institution Initiate statin Initiate beta-wan Cardiology consultation Echocardiogram Will go to angiogram today Further evaluation and treatment as indicated EKG has been ordered Nitroglycerin drip (2) Hypertension: Patient markedly hypertensive on arrival. Metoprolol was given. She was placed on a nitroglycerin drip. Hydralazine 10 mg IV Adjust medication as needed (3) Diabetes: Consistent carb diet Sliding scale insulin (4) HLD (hyperlipidemia): Initiate statin, Lipitor 40 mg at night Plan Other medical problems as listed in past medical history Patient answered suicide screening by nursing that she has passive thoughts of not waking up. She denies any active thoughts of suicide. She reports she would never commit suicide. She reports she is felt sad lately because of the of her dog, and her family is buying her a new one. She denies any plans of suicide, or means to do so. Therefore, no active threat. Full code Lovenox for DVT prophylaxis, following angiogram. She was previously on heparin which will suffice Attestations Medical Necessity Statement*: Will need greater than 2 midnight stay for evaluation and treatment of non-ST elevation myocardial infarction Diagnoses NSTEMI (non-ST elevated myocardial infarction) I21.4 Hypertension I10 Diabetes E11.9 HLD (hyperlipidemia) E78.5 Time Spent (min) 65
--- NOTE | 2023-05-19 11:45 | XACV_ITS ---
Exam Room: [facility] Ht: 160 cm Wt: 44 kg BSA: 1.38 m2 Gender: Female : 1955 Any Known Allergies: No known allergies Exam Priority: Routine Procedure(s): Procedure Description: Diagnostic procedure Procedure Description: PCI procedure Procedure Description: Left Heart Catheterization Procedure Description: Left ventriculography Procedure Description: Drug Eluting Coronary Stent Procedure Description: PTCA Procedure Description: Coronary Angiography Diagnostic Cath Status: Urgent Diagnostic Findings * Left main showed minor luminal irregularities. LAD has patent stent in the midportion there is 40 to 50% proximal disease. Left circumflex artery showed minor disease. RCA was large and dominant vessel and showed 90% in the midportion 60-70 % disease proximal. * Left Main has no disease. * Left Anterior Descending has no disease. * Circumflex has no disease. * Proximal Right Coronary Artery: obstructive 70% stenosis, ONELIA: 3 flow. * Mid Right Coronary Artery: obstructive 70% stenosis, ONELIA: 3 flow. * Coronary angiography shows right dominance. PCI Status: Urgent Interventional Findings * Using JR4 guiding cath the right coronary artery was engaged. cougar X wire was was utilized to cross the lesion without difficulty then 2.5 x 15 mm balloon was advanced to the stenotic lesion was inflated up to 8 atmospheric pressure. The balloon was subsequently removed and 3.5 x 26 mm Orting stent was deployed using 12 atmospheric pressure with good results. There is wire bias distally subsequently resolved with IC nitro and wire pulled back. Proximal lesion was subsequently stented using 3.5 x 15 mm drug-eluting Hien stent overlapped with the previous stent with final angiogram showing excellent results with ONELIA-3 flow distally and no residual stenosis. * Proximal Right Coronary Artery: 70% stenosis treated with a MDT R HIEN 3.5X15 ELOISE. * Mid Right Coronary Artery: 70% stenosis treated with a AB TREK 2.50X15 RX BALLOON, and MDT R HIEN 3.5X26 ELOISE. Conclusions 1. 1. Successful PCI with 2 drug-eluting stent to the proximal and mid RCA. 2. Moderate proximal 40% disease LAD with patent stent in the midportion 3. Low normal LV function with EF 50%. Recommendation patient to continue on dual antiplatelet aspirin and Brilinta. Patient and family are aware of the risk of occlusion of her stents if she does not take her Brilinta and aspirin fully aware of the risk of acute heart attack and if she stops taking those medication. 2. There is obstructive coronary artery disease with one vessel disease. 3. Normal left ventricular systolic function. Ejection fraction of 50%. 4. Inferior apical hypokinesis with EF 50%. No gradient across the aortic valve. No significant MR seen. 5. Proximal Right Coronary Artery was treated with a Drug Eluting Stent. 6. Mid Right Coronary Artery was treated with a Balloon, and Drug Eluting Stent. Recommendations * Continue current medical management and risk factor modification. Anticoagulation: Tirofiban, Heparin Ventriculography Ejection Fraction: 50.0 % Left Ventriculography Findings: * Inferior apical hypokinesis with EF 50%. No gradient across the aortic valve. No significant MR seen. Pressures Phase:Rest AO : 137 / 51 ( 80 ) @ 12:23:00 PM 119 / 65 ( 84 ) @ 12:28:00 PM 121 / 56 ( 78 ) @ 12:32:00 PM 154 / 59 ( 94 ) @ 12:51:00 PM 155 / 59 ( 94 ) @ 12:51:00 PM LV : 152 / -10 / 8 @ 12:50:00 PM 154 / -10 / 7 @ 12:51:00 PM Valves Phase:DefaultPhase AV : 0.0 @ 1:02:17 PM 0.0 @ 1:02:17 PM AV Mean Gradient: 0.0 @ 1:02:17 PM Clinical Evaluation EBL: 5mL-10mL Procedural Details Procedure Consent Obtained. Admit Source: In Patient. Pre-Procedure Time Out. Identified patient by full name and date of as verbalized by the patient/guarantor. Does the consent match the physician's order: Yes. Accurate & Complete Informed Consent: Yes. Inpatient/Outpatient History & Physical on Chart: Yes. If H&P is completed, is and addenduem needed: Yes; If yes, is the addendum complete: No. Visualize and Verify Site with Patient/Guarantor: N/A. Relevant Radiology Images available: N/A. The risks, benefits, and alternatives of sedation and/or procedure were discussed by physician. The patient agrees to continue. Procedure started. [facility] Clinical Fraility Score: 3: Managing Well. Kier Hand Indications: ACS > 24 hours. Chest Pain Symptom Assessment: Typical Angina Symptoms. Correct patient, site and procedure confirmed by cath team. Current diagnosis: NSTEMI. PERRLA. Strong, equal hand member of technical staff bilaterally. Lungs clear x 5 lobes. IV Site on Arrival: 20 gauge in the left hand. IV Site on Arrival: 18 gauge in the right anticubital. IV Fluids: 0.9% NaCl at KVO. 50 mL infused prior to laboratory animal facility supervisor. Pre Procedural Pulses: bilateral dorsalis pedis was 3+. Pre Procedural Pulses: bilateral posterior tibial was 3+. Pre Procedural Pulses: bilateral radial was 3+. Oxygen started at 2liters/min via nasal canula. bilateral groins was prepped with chloroprep then draped in the usual sterile fashion. Baseline sample Acquired. HR: 94 BPM. Physician notified. Physician arrived. Physician scrubbed in. Immediate Pre-Procedure Time Out. Correct Patient: Yes; Correct Procedure: Yes; Correct Site: Yes; Correct Patient Position: Yes; Correct Supplies: Yes; Dried Flammable Prep: Yes; Blood Products Available: No;. Pt arrived to laboratory animal facility supervisor with Nitro gtt infusing at 40mcg/min. Lidocaine 1% infiltrated to the right groin. Arterial access obtained with micropuncture set. A 5 panamanian JL4 catheter in over wire. Multiple views taken of left coronary artery. Catheter removed over the standard wire. A 5 panamanian JR4 catheter in over wire. Multiple views taken of right coronary artery. Catheter removed over the standard wire. PCI Indication: NSTEMI. 6 panamanian JR 4 guide catheter was inserted over the wire. Morton guidewire was advanced through the guide catheter to lesion in the mid RCA. Guidewire advanced across lesion. Balloon inserted to lesion in the mid RCA. Inflation number : 1 A AB TREK 2.50X15 RX BALLOON was prepped and advanced across the Mid RCA , then inflated to 8 TITO for 0:09 seconds. Balloon out. Stent inserted to lesion in the mid RCA. Inflation Number : 2 A MDT R HIEN 3.5X26 ELOISE -Lot Number# [id number] EXP 11-09-2025_ was prepped and advanced across the Mid RCA. The stent was deployed at 12 TITO for 0:12 seconds. Stent balloon out over wire. Nitro gtt titrated to 30mcg/min by Rubén Jerome RN, RUST. Results checked. Stent inserted to lesion in the prox RCA. Inflation Number : 1 A MDT R HIEN 3.5X15 ELOISE -Lot Number#[id number] EXP 05-09-25 was prepped and advanced across the Prox RCA. The stent was deployed at 12 TITO for 0:10 seconds. Stent balloon out over wire. Results checked. Wire out. ACT drawn. Results -out of range high results. Therapeutic limits - pre-heparin administration 90-150 seconds and monitoring heparin during a vascular procedure >250 seconds. Guide catheter out. A 5 panamanian Angled Pig catheter in over wire. LV gram performed in [place] @ 10 mL/second for a total of 20 mL. EDP Sample taken: LV 152/-11,8; HR: 90 BPM; SpO2: 97%. Pullback taken: LV 154/-11,7; AO 154/59(94); Mean: 0mmHg, Peak to Peak: 0mmHg, SEP: 12sec/min; HR: 91 BPM; SpO2: 96%. Catheter removed over the standard wire. A Right femoral angiogram was performed to determine safe placement of closure device. A Suture was successful obtaining hemostatsis at the Right Femoral artery insertion site. ACT drawn. Results 267 seconds. Therapeutic limits - pre-heparin administration 90-150 seconds and monitoring heparin during a vascular procedure >250 seconds. Physician scrubbed out. Sheath(s) sutured into position with 2-0 silk and sterile 4x4's and Op-site applied over the site. No oozing or signs and symptoms of hematoma noted. Arterial sheath flushed and connected to tranducer and pressure bag with heparinized saline. Post Procedure: Pulses reassessed and unchanged. PERRLA. Strong, equal hand member of technical staff bilaterally. No VTE prophylaxis required. Medication's Wasted: Nitro = 49.6 mg. Medication's Wasted: Heparin = 1500 units. Medication's Wasted: Other = Fentanyl 75 mcg. Medication's Wasted: Other = Aggrastat 78 mL. Total IV fluids: 50 mL. Post-op diagnosis: Nstemi, Severe single vessel disease RCA. Complications: None. Estimated blood loss: 5mL-10mL. Responsiveness - Normal response to verbal stimuli; alert and oriented, PERRLA. Airway - Unaffected, no intervention required; spontaneous ventilation. Circulation: W/N/L, pulses unchanged. Nausea/Vomiting: No. Procedure completed. Patient transferred by bed to ICU. Vital chart was stopped. Access Site Site: Right Femoral artery Sheath Size: 6 Fr Hemostasis Method: Suture Hemostasis Success: Successful Complication Findings: None. Procedure Medications Start: 12:16 PM Stop: 12:16 PM Medication: Versed Amount: 1 mg Route: I.V. Start: 12:16 PM Stop: 12:16 PM Medication: Fentanyl Amount: 12.5 mg Route: I.V. Start: 12:31 PM Stop: 12:31 PM Medication: Heparin Amount: 2500 units Route: I.V. Start: 12:34 PM Stop: 12:34 PM Medication: Aggrastat 12.5 mg/250 mL Amount: 22 ml Route: I.V. bolus Start: 12:37 PM Stop: 12:37 PM Medication: Versed Amount: 1 mg Route: I.V. Start: 12:38 PM Stop: 12:38 PM Medication: Fentanyl Amount: 12.5 mg Route: I.V. Start: 12:40 PM Stop: 12:40 PM Medication: Nitrogylcerin Amount: 200 mcg Route: I.C. Start: 12:42 PM Stop: 12:42 PM Medication: Nitrogylcerin Amount: 100 mcg Route: I.C. Start: 12:46 PM Stop: 12:46 PM Medication: Nitrogylcerin Amount: 100 mcg Route: I.C. Start: 12:48 PM Stop: 12:48 PM Medication: Versed Amount: 1 mg Route: I.V. Start: 12:40 PM Stop: 12:40 PM Medication: Versed Amount: 1 mg Route: I.V. Start: 12:58 PM Stop: 12:58 PM Medication: Brilinta Amount: 180 mg Route: P.O. I, the attending physician, have reviewed and verified all procedure medications. Yes, all medications given per verbal order History/Risk Factors Hypertension: Yes Dyslipidemia: Yes Peripheral Arterial Disease (PAD): No Myocardial Infarction ([place]): No Obesity: No Prior Interventions PCI: Yes Valve Surgery: No Date of PCI: 09/27/2020 Report Signatures Finalized by Asim Maldonado MD on 05/19/2023 01:14 PM
[2023-05-19] MEDS: insulin lispro 100 unit/1 mL SUBCUT ×3 (13:31→20:33)
[2023-05-19] MEDS: acetaminophen 325 mg Tablet 650 MG PO (13:31)
[2023-05-19 13:49] LABS: Glucose Point of Care 343 mg/dL (70-110)
--- NOTE | 2023-05-19 14:27 | PC.NURSE ---
Received patient from Rn Postpartum staff at 1314. Patient is oriented to person, place, time, and situation, though is lethargic still. BP: 154/87, HR: 92, RR: 22, SPO2: 96% on room air. RIght groin sheath site is unremarkable, gauze and tegaderm in place, no bleeding observed externally, no hemtoma felt. NUrse educated patient on treatment plan, need to lay flat/not bend at waist, future blood draw to check PTT for sheath removal.
--- NOTE | 2023-05-19 15:16 | ECG_ITS ---
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 Measurements Intervals [place] Rate: 81 P: 69 KS: 158 QRS: -35 QRSD: 150 T: 179 QT: 437 QTc: 510 Interpretive Statements SINUS RHYTHM RIGHT ATRIAL ENLARGEMENT [0.3mV P-WAVE] LEFT AXIS DEVIATION [QRS AXIS < -30] LEFT BUNDLE BRANCH BLOCK [120+ ms QRS DURATION, 80+ ms Q/S IN V1/V2, 85+ ms R IN I/aVL/V5/V6] Compared to ECG 05/19/2023 10:29:40 Atrial abnormality now present Electronically Signed On 05-20-2023 5:57:34 HANDLE BENDER by Cheryl Wright M.D. [id number]
[2023-05-19] MEDS: alum-mag-hydroxide-sime 30 mL UDC PO (15:34)
[2023-05-19 15:37] LABS: Partial Thromboplastin Time 144.1 SECONDS (23.9-36.7)
--- NOTE | 2023-05-19 15:41 | PC.NURSE ---
Patient states they have indigestion, mainly in the stomach, but radiates up into the throat. Patient states that it feels the same as the indigestion she felt before the heart attack which brought her in today. Nurse alerted Dr morris. recieved orders for an EKG and maalox. Nurse took ekg and sent results to Dr morris. No changes. continue to monitor. maalox given.
[2023-05-19 17:33] LABS: Glucose Point of Care 250 mg/dL (70-110)
[2023-05-19] MEDS: morphine 4 mg/mL SDV 1 mL 2 MG IVP (18:29)
[2023-05-19 19:21] LABS: Partial Thromboplastin Time 49.3 SECONDS (23.9-36.7)
--- NOTE | 2023-05-19 19:25 | PC.NURSE ---
Shift SUmmary: Uneventful shift. Since getting back from collaborative physician patient has rested in bed following bed rest and positioning restrictions. Was unable to pull sheath earlier due to PTT of 144. Second PTT result is currently pending at the time of this note.
[2023-05-19] MEDS: atorvastatin 40 mg Tablet PO (20:22)
[2023-05-19] MEDS: lisinopril 5 mg Tablet PO (20:22)
[2023-05-19 20:31] LABS: Glucose Point of Care 340 mg/dL (70-110)
[2023-05-19] MEDS: ondansetron 2 mg/ML SDV 2 mL 4 MG IVP (20:49)
[2023-05-19] MEDS: nitroglycerin drip 50 MG/250 ML PREMIX 12 MG IV (22:11)
[2023-05-20] VITALS (39 sets, daily range): BP systolic 100–190; BP diastolic 41–109; PULSE 77–126; RESP 10–37; TEMP 36.8–37.1; O2SAT 92–98
[2023-05-20] MEDS: HYDROmorphone 1 mg/mL INJ 1 mL 0.4 MG IVP (00:14)
[2023-05-20] MEDS: ondansetron 2 mg/ML SDV 2 mL 4 MG IVP ×2 (00:38→07:56)
[2023-05-20 04:37] LABS: Basophils # 0.1 10^3/uL (0.0-0.1); Basophils % 0.3 %; Eosinophils % 0.1 %; Hematocrit 36.8 % (36-47); Lymphocytes # 1.3 10^3/uL (0.8-4.8); Lymphocytes % 9.1 %; Mean Corpuscular HGB Conc 33.7 g/dL (30-55); Mean Corpuscular Hemoglobin 30.1 pg (27-33); Mean Corpuscular Volume 89.3 fl (85-98); Monocytes # 1.2 10^3/uL (0.2-0.9); Monocytes % 8.2 %; Neutrophils % 81.8 %; Nucleated Red Blood Cells % 0 %; Platelet Count 203 10^3/cmm (157-399); Red Blood Count 4.12 10^6/uL (3.85-5.65); Red Cell Distribution Width 11.7 % (12.1-15.1); White Blood Count 14.32 10^3/uL (3.29-11.43)
[2023-05-20 05:07] LABS: Alanine Aminotransferase 33 U/L (0-33); Albumin Level 3.7 g/dL (3.5-5.2); Alkaline Phosphatase 99 U/L (35-105); Aspartate Amino Transferase 22 U/L (0-32); Blood Urea Nitrogen 16 mg/dL (8-23); Calcium 8.9 mg/dL (8.5-10.5); Carbon Dioxide 20 mmol/L (22-29); Chloride 101 mmol/L (98-107); Creatinine Clr Calc Pharmacy 46.2666; Globulin 2.5 g/dL (1.3-4.6); Glomerular Filtration Rate 71.3 mL/min (90-130); Glucose 236 mg/dL (65-115); Magnesium 1.9 mg/dL (1.7-2.3); Osmolality Calculated 291 mOsm/kg (285-295); Sodium 136 mmol/L (136-145); Total Bilirubin 0.5 mg/dL (0.15-1.2); Total Protein 6.2 g/dL (6.6-8.7)
--- NOTE | 2023-05-20 06:03 | PC.NURSE ---
Patient tolerated catheter sheath removal fairly well, had bouts of nausea and had to wait for BP to come within parameters to become able to pull. Patient in lots of pain due to position of having to lay and received medications. Patient also has a very sensitive stomach and has had several bouts of nausea and given zofran and has calmed down. Patient told that she can move her leg at 0400 but took that as being able to get out of bed and other nurse found patient attempting to climb out of bed on her own and very unsteady.
[2023-05-20 07:52] LABS: Glucose Point of Care 279 mg/dL (70-110)
[2023-05-20] MEDS: insulin lispro 100 unit/1 mL SUBCUT ×2 (07:57→21:21)
[2023-05-20] MEDS: ticagrelor 90 mg Tablet PO ×2 (08:00→17:31)
[2023-05-20] MEDS: isosorbide mononitrate ER 30 mg Tablet PO (08:00)
[2023-05-20] MEDS: metoprolol succinate ER (24 HR) 50 mg Tablet PO (08:00)
[2023-05-20] MEDS: aspirin 81 mg EC Tablet PO (08:00)
[2023-05-20] MEDS: pantoprazole DR 40 mg Tablet PO (08:00)
[2023-05-20] MEDS: lisinopril 5 mg Tablet PO (08:02)
[2023-05-20 08:51] LABS: Estmated Average Glucose 223; Hemoglobin A1C 9.4 % (4.0-6.0)
[2023-05-20 09:01] LABS: Chol HDL Ratio 3.47 mg/dL (0.0-4.40); Cholesterol 170 mg/dL (0-200); HDL Cholesterol 49 mg/dL (60-100); LDL Cholesterol Calculated 109 mg/dL (50-129); LDL HDL Ratio 2.22 RATIO (0.00-3.22); Thyroid Stimulating Hormone 2.38 uIU/mL (0.27-4.20); Triglycerides 62 mg/dL (0-150)
--- NOTE | 2023-05-20 09:51 | XRR_ITS ---
PROCEDURE INFORMATION: Exam: XR Abdomen Exam date and time: 05/20/2023 10:47 AM Age: 67 years old Clinical indication: Abdominal tenderness and bloating; Additional info: Abominal distention TECHNIQUE: Imaging protocol: Radiologic exam of the abdomen. Views: Frontal supine view of the abdomen. 1 View. COMPARISON: CR XR chest 1V portable [id number] 05/20/2023 10:[address] February 02, 2023. FINDINGS: Gastrointestinal tract: Normal. No bowel dilation. Organs: Calcified fibroid. Bones/joints: Unchanged diffuse osseous abnormality. XR/XR KUB portable [id number] IMPRESSION: As above.
--- NOTE | 2023-05-20 09:53 | XRR_ITS ---
PROCEDURE INFORMATION: Exam: XR Chest Exam date and time: 05/20/2023 10:47 AM Age: 67 years old Clinical indication: Shortness of breath; Additional info: SOB TECHNIQUE: Imaging protocol: Radiologic exam of the chest. Views: 1 view. COMPARISON: CT lung screening [id number] 02/02/2023 12:04 PM FINDINGS: Lungs: Unremarkable. No consolidation. Pleural spaces: Unremarkable. No pleural effusion. No pneumothorax. Heart/Mediastinum: Unremarkable. No cardiomegaly. Bones/joints: Unchanged diffuse osseous abnormality. Unchanged bilateral shoulder arthritis. Unchanged scoliosis and spondylosis. XR/XR chest 1V portable [id number] IMPRESSION: No acute disease.
--- NOTE | 2023-05-20 10:14 | ECG_ITS ---
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 Measurements Intervals [place] Rate: 85 P: 64 MS: 137 QRS: -45 QRSD: 153 T: 152 QT: 423 QTc: 505 Interpretive Statements SINUS RHYTHM LEFT AXIS DEVIATION [QRS AXIS < -30] LEFT BUNDLE BRANCH BLOCK [120+ ms QRS DURATION, 80+ ms Q/S IN V1/V2, 85+ ms R IN I/aVL/V5/V6] Compared to ECG 05/19/2023 15:28:50 Atrial abnormality no longer present Electronically Signed On 05-21-2023 21:31:16 PHOTO STUDIO ASSISTANT by Cheryl Wright M.D. [id number]
[2023-05-20] MEDS: docusate sodium 100 mg Capsule PO ×2 (10:16→17:31)
[2023-05-20] MEDS: promethazine 25 mg/mL SDV 1 mL 12.5 MG IM (10:16)
[2023-05-20] MEDS: scopolamine 1.5 Patch 1 PATCH TRANSDERMA (10:16)
[2023-05-20] MEDS: polyethylene glycol 3350 Pkt 17 gm PO (10:17)
[2023-05-20 10:34] LABS: Lipase 12 U/L (13-60)
[2023-05-20 10:51] LABS: Add Urine Microscopic? NO; Charge for UA Resulting for Rev
--- NOTE | 2023-05-20 10:54 | P.PN_ITS ---
Subjective 2 Subjective: Patient is alert and awake no chest pain or shortness of breath however she is vomiting. Given scopolamine and Zovirax. Vitals/I&O/Wt Last Vital Signs Temp 98.4 F 05/19/23 17:00 Pulse 95 05/20/23 10:47 Resp 26 H 05/20/23 10:47 BP 165/88 05/20/23 10:47 Pulse Ox 96 05/20/23 10:47 O2 Del Method Room Air 05/20/23 05:57 05/19/23 05/20/23 05/20/23 22:59 06:59 14:59 Intake Total 695.45 / 720.55 360 / 1080.55 Output Total 450 / 700 Balance 245.45 / 20.55 360 / 380.55 Weight last 48 hrs Weight 102 lb Weight 102 lb Weight 96 lb Weight 96 lb Physical Exam 2 Const: COMMON NORMALS: no acute distress, patient oriented x3, no limitations, alert and well nourished HENMT: COMMON NORMALS: normocephalic, atraumatic, hearing grossly normal bilaterally and gingiva normal HEAD & SCALP: normocephalic and atraumatic Eye: COMMON NORMALS: Equal, round and reactive pupils present and EOMs intact bilaterally GENERAL EYE: appearance normal, both eyes and all related structures PUPIL: Yes Equal, round and reactive pupils present Neck/C-Spine: COMMON NORMALS: no JVD GENERAL: Yes normal visual inspection CAROTIDS: Yes normal carotid upstroke Chest: COMMONS NORMALS: normal inspection of the chest CHEST: Yes Symmetrical chest wall rise Resp: COMMON NORMALS: normal respiratory effort, No retractions, clear to auscultation bilaterally and percussion normal EFFORT & INSPECTION: Yes symmetric chest movement AUSCULTATION: clear to auscultation bilaterally P ERCUSSION: percussion normal Cardio: COMMON NORMALS: no JVD, regular rate, regular rhythm, S1 normal heart sound present, S2 normal heart sound present, No gallops present (Cardio), No clicks present (Cardio), No murmurs present (Cardio) and No rub (Cardio) R ATE: regular rate RHYTHM: regular rhythm HEART SOUNDS: S1 normal heart sound present and S2 normal heart sound present GI: COMMON NORMALS: Normal to inspection, nondistended, normoactive bowel sounds present, Soft to palpation and non-tender PALPATION: Yes Soft to palpation : COMMON NORMALS: Yes no CVA tenderness BLADDER/KIDNEY EXAM: Yes no CVA tenderness Back/Pelvis: COMMON NORMALS: no CVA tenderness Extremity: COMMON NORMALS: normal to inspection, full ROM, no joint enlargement, no clubbing, cyanosis or edema and no calf tenderness Neuro: COMMON NORMALS: patient oriented x3, moves all extremities, no focal motor deficits and no sensory deficits noted SENSORIUM/ORIENTATION: Yes alert GAIT: Yes Normal gait present Psych: COMMON NORMALS: mental status grossly normal APPEARANCE: Yes grossly normal Skin: COMMON NORMALS: no rashes or lesions noted GENERAL SKIN EXAM: no rashes or lesions noted Data 05/20/23 03:39 05/20/23 03:39 A&P Assessment and plan (1) Hypertension: Improved still on IV nitroglycerin drip will wean that off. Continue JOSE A inhibitor beta-blockers. On IV hydralazine as needed as well. (2) Atherosclerotic heart disease of [place] coronary artery without angina pectoris: Status post non-STEMI status post severe single-vessel disease with 2 drug- eluting stent to the right coronary artery. Doing well without any chest pain or shortness of breath. Continue dual antiplatelet with baby aspirin and Brilinta 90 mg twice a day (3) HLD (hyperlipidemia): Continue on statin LDL goal less than 70 continue low-fat diet Attestations 2 Medical Necessity Statement*: Patient still vomiting and nauseated need to wean off IV nitro. Plan to discharge in 1 day if doing well Coding Level of Care Code Acute Code for Chg Fwd Diagnoses Hypertension I10 Atherosclerotic heart disease of [place] coronary artery without angina pectoris I25.10 HLD (hyperlipidemia) E78.5
[2023-05-20 11:01] LABS: Bilirubin Urine Neg (Negative); Blood Urine Neg (Negative); Glucose Urine UA 4+ (Normal); Ketones Urine 2+ (Negative); Leukocyte Esterase Urine Negative (Negative); Nitrate Urine Negative (Negative); Protein Urine Neg (Negative); Specific Gravity, Urine 1.005 (1.005-1.030); Urine Appearance Clear (CLEAR); Urine Color Yellow (Yellow); Urobilinogen Urine Norm (Negative); pH Urine 6.5 (5-7)
[2023-05-20 11:02] LABS: Troponin(5th) Baseline 223 ng/L (0-10)
--- NOTE | 2023-05-20 11:58 | ECG_ITS ---
[facility] Test Date: 2023-05-20 Pat Name: Tari Hyatt Department: Room: ICU01 Gender: Female Flow Floor Attendant: : 1955 Requested By: Callum Alfaro Order Number: [id number] David MD: Cheryl Wright M.D. Measurements Intervals [place] Rate: 81 P: 63 AL: 160 QRS: -47 QRSD: 152 T: 141 QT: 435 QTc: 506 Interpretive Statements SINUS RHYTHM POSSIBLE LEFT ATRIAL ENLARGEMENT [-0.1mV P-WAVE IN V1/V2] LEFT AXIS DEVIATION [QRS AXIS < -30] LEFT BUNDLE BRANCH BLOCK [120+ ms QRS DURATION, 80+ ms Q/S IN V1/V2, 85+ ms R IN I/aVL/V5/V6] Compared to ECG 05/20/2023 10:14:58 No significant changes Electronically Signed On 05-21-2023 21:35:54 CLOSING AGENT by Cheryl Wright M.D. [id number]
[2023-05-20 12:57] LABS: Troponin 5 2HR Delta -5.2 ABS# (0-10)
[2023-05-20 12:59] LABS: Troponin 5 2HR 217.8 ng/L (0-10)
[2023-05-20 13:10] LABS: Glucose Point of Care 195 mg/dL (70-110)
--- NOTE | 2023-05-20 14:29 | P.PN_ITS ---
Subjective 2 Subjective: Patient was seen early this morning, she complains of severe nausea vomiting poor appetite, she has not had a bowel movement she tells me also that she has not eaten, she tells me that she does not use any diabetic medications her A1c was 9.4, discussed in detail diabetic education, blood sugar monitoring, morbidity and mortality associated, she has had stents placed now, she needs to be compliant with aspirin and Brilinta, she is a high risk of morbidity and mortality if she misses her doses, high risk of in-stent stenosis, will have to get her nausea under control, she becomes very agitated with me asked me why I want to order so many tests, and x-rays, I was able to discuss with her that I want to make sure that there is nothing else going on, make her white blood cell count has gone up to 14.3201 to make sure she has not aspirated with her nausea and vomiting, I will do a KUB to make sure she does not have any obstruction, with her recurrent nausea vomiting, her going to have to watch her sugars closely, close titration of blood sugars she is going to be on insulin when she goes home we will have to talk with her primary care provider so she can be put on potentially a GLP-1 analog to decrease her morbidity or mortality, or possibly [place], associate with CAD, she is more understandable, will also check her lipase recheck her troponin series check her TSH check her UA, Vitals/I&O/Wt Last Vital Signs Temp 98.4 F 05/19/23 17:00 Pulse 80 05/20/23 13:47 Resp 24 H 05/20/23 13:47 BP 100/41 05/20/23 13:47 Pulse Ox 95 05/20/23 13:47 O2 Del Method Room Air 05/20/23 05:57 05/19/23 05/20/23 05/20/23 22:59 06:59 14:59 Intake Total 695.45 / 720.55 360 / 1080.55 Output Total 450 / 700 Balance 245.45 / 20.55 360 / 380.55 Weight last 48 hrs Weight 46.266 kg Weight 46.266 kg Weight 43.545 kg Weight 43.545 kg Physical Exam 2 Const: COMMON NORMALS: no acute distress and patient oriented x3 Resp: COMMON NORMALS: normal respiratory effort, No retractions, No use of accessory muscles and clear to auscultation bilaterally AUSCULTATION: clear to auscultation bilaterally Cardio: COMMON NORMALS: regular rate, regular rhythm, S1 normal heart sound present and S2 normal heart sound present RATE: regular rate RHYTHM: r egular rhythm HEART SOUNDS: S1 normal heart sound present and S2 normal heart sound present GI: COMMON NORMALS: Normal to inspection, nondistended, normoactive bowel sounds present Extremity: COMMON NORMALS: no pedal edema Neuro: COMMON NORMALS: patient oriented x3 Psych: COMMON NORMALS: mental status grossly normal Data 05/20/23 03:39 05/20/23 03:39 A&P Assessment and plan (1) NSTEMI (non-ST elevated myocardial infarction): Patient with non-ST elevation myocardial infarction Aspirin was initiated at outside institution Heparin was initiated at outside institution Conclusions 1. 1. Successful PCI with 2 drug-eluting stent to the proximal and mid RCA. 2. Moderate proximal 40% disease LAD with patent stent in the midportion 3. Low normal LV function with EF 50%. Recommendation patient to continue on dual antiplatelet aspirin and Brilinta. Patient and family are aware of the risk of occlusion of her stents if she does not take her Brilinta and aspirin fully aware of the risk of acute heart attack and if she stops taking those medication. 2. There is obstructive coronary artery disease with one vessel disease. 3. Normal left ventricular systolic function. Ejection fraction of 50%. 4. Inferior apical hypokinesis with EF 50%. No gradient across the aortic valve. No significant MR seen. 5. Proximal Right Coronary Artery was treated with a Drug Eluting Stent. 6. Mid Right Coronary Artery was treated with a Balloon, and Drug Eluting Continue aspirin 81 mg, Brilinta Initiate statin Initiate beta-wan, remains on nitro drip for hypertension, transition off nitro drip Continue Imdur (2) Hypertension: Titrate p.o. blood pressure medications (3) Diabetes: Consistent carb diet Sliding scale insulin (4) HLD (hyperlipidemia): Initiate statin, Lipitor 40 mg at night Plan Other medical problems as listed in past medical history Patient answered suicide screening by nursing that she has passive thoughts of not waking up. She denies any active thoughts of suicide. She reports she would never commit suicide. She reports she is felt sad lately because of the of her dog, and her family is buying her a new one. She denies any plans of suicide, or means to do so. Therefore, no active threat. Full code Lovenox for DVT prophylaxis, following angiogram. She was previously on heparin which will suffice Patient was seen early this morning, she complains of severe nausea vomiting poor appetite, she has not had a bowel movement she tells me also that she has not eaten, she tells me that she does not use any diabetic medications her A1c was 9.4, discussed in detail diabetic education, blood sugar monitoring, morbidity and mortality associated, she has had stents placed now, she needs to be compliant with aspirin and Brilinta, she is a high risk of morbidity and mortality if she misses her doses, high risk of in-stent stenosis, will have to get her nausea under control, she becomes very agitated with me asked me why I want to order so many tests, and x-rays, I was able to discuss with her that I want to make sure that there is nothing else going on, make her white blood cell count has gone up to 14.3201 to make sure she has not aspirated with her nausea and vomiting, I will do a KUB to make sure she does not have any obstruction, with her recurrent nausea vomiting, her going to have to watch her sugars closely, close titration of blood sugars she is going to be on insulin when she goes home we will have to talk with her primary care provider so she can be put on potentially a GLP-1 analog to decrease her morbidity or mortality, or possibly [place], associate with CAD, she is more understandable, will also check her lipase recheck her troponin series check her TSH check her UA, Attestations 2 Medical Necessity Statement*: Patient requires hospitalization for NSTEMI, status post and placement x2, Diagnoses NSTEMI (non-ST elevated myocardial infarction) I21.4 Hypertension I10 Diabetes E11.9 HLD (hyperlipidemia) E78.5
[2023-05-20 18:27] LABS: Troponin 5 6HR 280.9 ng/L (0-10); Troponin 5 6HR Delta 57.9 ng/L (0-12)
[2023-05-20] MEDS: atorvastatin 40 mg Tablet PO (20:12)
[2023-05-20 21:08] LABS: Glucose Point of Care 268 mg/dL (70-110)
[2023-05-21] VITALS (9 sets, daily range): BP systolic 129–179; BP diastolic 65–81; PULSE 20–90; RESP 16–21; TEMP 36.5–37.3; O2SAT 96–99
[2023-05-21 01:41] LABS: Basophils # 0.1 10^3/uL (0.0-0.1); Basophils % 0.5 %; Eosinophils # 0.1 10^3/uL (0.0-0.8); Eosinophils % 0.8 %; Hematocrit 36.9 % (36-47); Lymphocytes # 1.6 10^3/uL (0.8-4.8); Lymphocytes % 14.7 %; Mean Corpuscular HGB Conc 31.7 g/dL (30-55); Mean Corpuscular Volume 94.6 fl (85-98); Mean Platelet Volume 10.9 fL (7.4-10.4); Monocytes % 9.7 %; Neutrophils % 74.1 %; Nucleated Red Blood Cells % 0 %; Platelet Count 177 10^3/cmm (157-399); Red Cell Distribution Width 11.7 % (12.1-15.1); White Blood Count 10.65 10^3/uL (3.29-11.43)
[2023-05-21 02:05] LABS: Albumin Level 3.2 g/dL (3.5-5.2); Alkaline Phosphatase 89 U/L (35-105); Blood Urea Nitrogen 22 mg/dL (8-23); Calcium 9.3 mg/dL (8.5-10.5); Carbon Dioxide 20 mmol/L (22-29); Chloride 103 mmol/L (98-107); Globulin 2.7 g/dL (1.3-4.6); Glomerular Filtration Rate 62.3 mL/min (90-130); Glucose 252 mg/dL (65-115); Magnesium 2.3 mg/dL (1.7-2.3); Osmolality Calculated 294 mOsm/kg (285-295); Sodium 136 mmol/L (136-145); Total Bilirubin 0.6 mg/dL (0.15-1.2); Total Protein 5.9 g/dL (6.6-8.7)
[2023-05-21 02:06] LABS: Alanine Aminotransferase 26 U/L (0-33); Aspartate Amino Transferase 28 U/L (0-32)
[2023-05-21 02:32] LABS: NT Pro B Type Natriuretic Pept 2352 pg/mL (0-125)
[2023-05-21 06:36] LABS: Glucose Point of Care 386 mg/dL (70-110)
[2023-05-21] MEDS: insulin lispro 100 unit/1 mL SUBCUT ×3 (07:37→17:12)
[2023-05-21] MEDS: isosorbide mononitrate ER 30 mg Tablet PO (08:48)
[2023-05-21] MEDS: aspirin 81 mg EC Tablet PO (08:49)
[2023-05-21] MEDS: ticagrelor 90 mg Tablet PO ×2 (08:49→17:13)
[2023-05-21] MEDS: metoprolol succinate ER (24 HR) 50 mg Tablet PO (08:49)
[2023-05-21] MEDS: pantoprazole DR 40 mg Tablet PO (08:49)
[2023-05-21] MEDS: polyethylene glycol 3350 Pkt 17 gm PO (08:52)
[2023-05-21] MEDS: lisinopril 10 mg Tablet PO (09:00)
--- NOTE | 2023-05-21 11:29 | P.PN_ITS ---
Subjective 2 Subjective: Patient is doing well without chest pain or shortness of breath up and around without symptoms. Right groin okay without hematoma Vitals/I&O/Wt Last Vital Signs Temp 98.4 F 05/21/23 07:31 Pulse 90 05/21/23 07:31 Resp 16 05/21/23 07:31 BP 162/75 05/21/23 07:31 Pulse Ox 98 05/21/23 07:31 O2 Del Method Room Air 05/21/23 07:31 05/20/23 05/21/23 05/21/23 22:59 06:59 14:59 Intake Total 1460 / 1460 480 / 1940 240 / 240 Balance 1460 / 1460 480 / 1940 240 / 240 Weight last 48 hrs Weight 103 lb 6.4 oz Weight 106 lb 12.8 oz Weight 102 lb Weight 102 lb Physical Exam 2 Narrative: Alert awake without any acute distress Const: COMMON NORMALS: patient oriented x3 and alert HENMT: COMMON NORMALS: normocephalic and hearing grossly normal bilaterally HEAD & SCALP: normocephalic Neck/C-Spine: COMMON NORMALS: no JVD Chest: COMMONS NORMALS: normal inspection of the chest and normal palpation of entire chest wall Resp: COMMON NORMALS: normal respiratory effort and No retractions EFFORT & INSPECTION: Yes symmetric chest movement Cardio: COMMON NORMALS: no JVD, regular rate, regular rhythm, S1 normal heart sound present, S2 normal heart sound present, No gallops present (Cardio), No clicks present (Cardio), No murmurs present (Cardio), No rub (Cardio) and Peripheral pulses 2+ throughout RATE: regular rate RHYTHM: regular rhythm HEART SOUNDS: S1 normal heart sound present and S2 normal heart sound present PERIPHERAL PULSES: Peripheral pulses 2+ throughout Extremity: COMMON NORMALS: normal to inspection, full ROM, capillary refill normal, no joint enlargement, no clubbing, cyanosis or edema, no calf tenderness and no pedal edema Neuro: COMMON NORMALS: patient oriented x3 SENSORIUM/ORIENTATION: Yes alert Data 05/21/23 01:25 05/21/23 01:25 A&P Assessment and plan (1) HLD (hyperlipidemia): On statin continue current medications (2) Hypertension: Adequately controlled continue current medications (3) NSTEMI (non-ST elevated myocardial infarction): Status post PCI with 2 drug-eluting stents to the right coronary artery. Patient is doing well without any active symptoms. Patient needs to continue on aspirin and 81 mg and Brilinta 90 mg twice a day for minimum a year. Again instructed her about taking those medications and the importance of not quitting dose and the risks of acute VT and if she does that. She fully understand and is willing to take him. Instructed to quit smoking Attestations 2 Medical Necessity Statement*: Patient will be able to be discharged home tomorrow after she takes her medications. Coding Level of Care Code Acute Code for g Fwd Diagnoses HLD (hyperlipidemia) E78.5 Hypertension I10 NSTEMI (non-ST elevated myocardial infarction) I21.4
[2023-05-21 12:22] LABS: Glucose Point of Care 193 mg/dL (70-110)
--- NOTE | 2023-05-21 14:04 | P.PN_ITS ---
Subjective 2 Subjective: Patient was seen this morning, currently chest pain-free, no shortness of breath no abdominal pain, no nausea, vomiting, we discussed monitoring her sugars as inpatient, monitoring her for recurrent chest pain monitoring her blood pressure, and likely discharging tomorrow, discussed with compliance with taking her aspirin and Brilinta compliance with blood sugar checks, compliance with blood pressure monitoring, quitting smoking, she is agreeable Vitals/I&O/Wt Last Vital Signs Temp 98.2 F 05/21/23 11:43 Pulse 20 L 05/21/23 11:43 Resp 20 H 05/21/23 11:43 BP 159/74 05/21/23 11:43 Pulse Ox 99 05/21/23 11:43 O2 Del Method Room Air 05/21/23 11:43 05/20/23 05/21/23 05/21/23 22:59 06:59 14:59 Intake Total 1460 / 1460 480 / 1940 480 / 480 Balance 1460 / 1460 480 / 1940 480 / 480 Weight last 48 hrs Weight 46.901 kg Weight 48.444 kg Weight 46.266 kg Weight 46.266 kg Physical Exam 2 Const: COMMON NORMALS: no acute distress and patient oriented x3 Resp: COMMON NORMALS: normal respiratory effort, No retractions, No use of accessory muscles and clear to auscultation bilaterally AUSCULTATION: clear to auscultation bilaterally Cardio: COMMON NORMALS: regular rate, regular rhythm, S1 normal heart sound present and S2 normal heart sound present RATE: regular rate RHYTHM: r egular rhythm HEART SOUNDS: S1 normal heart sound present and S2 normal heart sound present GI: COMMON NORMALS: Normal to inspection, nondistended, normoactive bowel sounds present and non-tender Extremity: COMMON NORMALS: no pedal edema Neuro: COMMON NORMALS: patient oriented x3 Psych: COMMON NORMALS: mental status grossly normal Data 05/21/23 01:25 05/21/23 01:25 A&P Assessment and plan (1) NSTEMI (non-ST elevated myocardial infarction): Patient with non-ST elevation myocardial infarction Aspirin was initiated at outside institution Heparin was initiated at outside institution Conclusions 1. 1. Successful PCI with 2 drug-eluting stent to the proximal and mid RCA. 2. Moderate proximal 40% disease LAD with patent stent in the midportion 3. Low normal LV function with EF 50%. Recommendation patient to continue on dual antiplatelet aspirin and Brilinta. Patient and family are aware of the risk of occlusion of her stents if she does not take her Brilinta and aspirin fully aware of the risk of acute heart attack and if she stops taking those medication. 2. There is obstructive coronary artery disease with one vessel disease. 3. Normal left ventricular systolic function. Ejection fraction of 50%. 4. Inferior apical hypokinesis with EF 50%. No gradient across the aortic valve. No significant MR seen. 5. Proximal Right Coronary Artery was treated with a Drug Eluting Stent. 6. Mid Right Coronary Artery was treated with a Balloon, and Drug Eluting Continue aspirin 81 mg, Brilinta Initiate statin Initiate beta-wan, remains on nitro drip for hypertension, transition off nitro drip Continue Imdur (2) Hypertension: Titrate p.o. blood pressure medications (3) Diabetes: Consistent carb diet Sliding scale insulin (4) HLD (hyperlipidemia): Initiate statin, Lipitor 40 mg at night Plan Other medical problems as listed in past medical history Patient answered suicide screening by nursing that she has passive thoughts of not waking up. She denies any active thoughts of suicide. She reports she would never commit suicide. She reports she is felt sad lately because of the of her dog, and her family is buying her a new one. She denies any plans of suicide, or means to do so. Therefore, no active threat. Full code Lovenox for DVT prophylaxis, following angiogram. She was previously on heparin which will suffice Patient requires hospitalization monitoring blood pressure, hypertension monitoring blood sugars after stent placement, poorly controlled diabetes add Lantus tonight, titrate p.o. blood pressure medications, titrate blood sugars Attestations 2 Medical Necessity Statement*: Patient requires hospitalization for cardiac stent placement, blood sugar monitoring Diagnoses NSTEMI (non-ST elevated myocardial infarction) I21.4 Hypertension I10 Diabetes E11.9 HLD (hyperlipidemia) E78.5
[2023-05-21 17:05] LABS: Glucose Point of Care 300 mg/dL (70-110)
[2023-05-21] MEDS: lisinopril 20 mg Tablet PO (17:13)
[2023-05-21 20:37] LABS: Glucose Point of Care 185 mg/dL (70-110)
[2023-05-21] MEDS: atorvastatin 40 mg Tablet PO (20:40)
[2023-05-21] MEDS: insulin glargine 100 units/1 mL 5 UNIT SUBCUT (20:40)
[2023-05-22] VITALS: BP 161/78; PULSE 77; RESP 17; TEMP 37; O2SAT 98
[2023-05-22 04:00] VITALS: BP 126/61; PULSE 76; RESP 17; TEMP 37; O2SAT 98
[2023-05-22 05:55] LABS: Basophils # 0.1 10^3/uL (0.0-0.1); Basophils % 0.5 %; Eosinophils # 0.3 10^3/uL (0.0-0.8); Eosinophils % 3.6 %; Hematocrit 36.7 % (36-47); Lymphocytes # 1.9 10^3/uL (0.8-4.8); Mean Corpuscular HGB Conc 32.4 g/dL (30-55); Mean Corpuscular Hemoglobin 30.1 pg (27-33); Mean Corpuscular Volume 92.9 fl (85-98); Mean Platelet Volume 10.7 fL (7.4-10.4); Monocytes # 0.8 10^3/uL (0.2-0.9); Monocytes % 8.6 %; Neutrophils # 6.03 10^3/uL (1.8-7.7); Neutrophils % 65.9 %; Nucleated Red Blood Cells % 0 %; Platelet Count 157 10^3/cmm (157-399); Red Blood Count 3.95 10^6/uL (3.85-5.65); Red Cell Distribution Width 11.4 % (12.1-15.1); White Blood Count 9.17 10^3/uL (3.29-11.43)
[2023-05-22 06:00] VITALS: PULSE 74
[2023-05-22 06:07] LABS: Glucose Point of Care 209 mg/dL (70-110)
[2023-05-22 06:20] LABS: Alanine Aminotransferase 32 U/L (0-33); Albumin Level 3.5 g/dL (3.5-5.2); Alkaline Phosphatase 98 U/L (35-105); Anion Gap 18.4 (5-19); Aspartate Amino Transferase 29 U/L (0-32); Blood Urea Nitrogen 22 mg/dL (8-23); Calcium 8.9 mg/dL (8.5-10.5); Carbon Dioxide 22 mmol/L (22-29); Chloride 103 mmol/L (98-107); Globulin 2.1 g/dL (1.3-4.6); Glomerular Filtration Rate 62.3 mL/min (90-130); Glucose 214 mg/dL (65-115); Osmolality Calculated 298 mOsm/kg (285-295); Potassium 4.4 mmol/L (3.5-5.1); Sodium 139 mmol/L (136-145); Total Bilirubin 0.6 mg/dL (0.15-1.2); Total Protein 5.6 g/dL (6.6-8.7)
[2023-05-22 06:25] LABS: NT Pro B Type Natriuretic Pept 1938 pg/mL (0-125)
--- NOTE | 2023-05-22 08:37 | P.PN_ITS ---
Vitals/I&O/Wt Last Vital Signs Temp 98.6 F 05/22/23 04:00 Pulse 74 05/22/23 06:00 Resp 17 05/22/23 04:00 BP 126/61 05/22/23 04:00 Pulse Ox 98 05/22/23 04:00 O2 Del Method Room Air 05/22/23 04:00 05/21/23 05/22/23 05/22/23 22:59 06:59 14:59 Intake Total 640 / 1120 Balance 640 / 1120 Weight last 48 hrs Weight 106 lb Weight 106 lb Weight 103 lb 6.4 oz Weight 106 lb 12.8 oz Data 05/22/23 05:33 05/22/23 05:33 Attestations 2 Medical Necessity Statement*: Care expected to cross 2 midnights. Coding Level of Care Code Acute Code for Miguleitog Sara
[2023-05-22 08:43] VITALS: BP 191/91; PULSE 73; RESP 16; TEMP 36.7; O2SAT 98
[2023-05-22] MEDS: insulin lispro 100 unit/1 mL SUBCUT (08:43)
[2023-05-22] MEDS: ticagrelor 90 mg Tablet PO (08:44)
[2023-05-22] MEDS: pantoprazole DR 40 mg Tablet PO (08:44)
[2023-05-22] MEDS: metoprolol succinate ER (24 HR) 50 mg Tablet PO (08:45)
[2023-05-22] MEDS: isosorbide mononitrate ER 30 mg Tablet PO (08:45)
[2023-05-22] MEDS: lisinopril 20 mg Tablet PO (08:45)
[2023-05-22] MEDS: aspirin 81 mg EC Tablet PO (08:46)
--- NOTE | 2023-05-22 10:21 | P.DS_ITS ---
Discharge Providers Date of Admission: 05/19/23 09:14 Date of Discharge: May 22, 2023 Attending Provider at Admission: Brandon Lopez MD Attending Provider at Discharge: Callum Alfaro MD Primary Care Provider: Eagle Quintanilla Diagnoses at Discharge Discharge Diagnosis (1) NSTEMI (non-ST elevated myocardial infarction): Status: Acute (2) Hypertension: Status: Acute (3) Diabetes: Status: Acute (4) HLD (hyperlipidemia): Status: Acute Reason for Visit Reason for Visit: NSTEMI Hospital Course Hospital Course Tari Hyatt is a 67 year old female transferred to [facility] from [facility] 05/19/23. Patient has a past medical history of diabetes, Hyperlipidemia, left bundle branch block, Hypertensive urgency, CHF, and NSTEMI with stent placed in LAD in September 2020 here at [facility]. Olena presents to [facility] today with the below mentioned complaints. Patient is a 67-year-old female with diabetes, HTN, hyperlipidemia, CHF, hypercholesterolemia, LBBB, tobacco use. She resides in [place] and lives alone. Patient is Alert and able to answer questions appropriately. Patient states that she has been having pain in her stomach that radiates up to her throat since 2 days before [place]. States she has been taking omeprazole and it has relieved the pain intermittently. She also reports shortness of breath on exertion, actively coughing up yellow thick phlegm. Patient was admitted to [facility] for NSTEMI, status post 2 cardiac stents, kept as inpatient, monitored, remained chest pain-free, discharged on aspirin, statin, Brilinta, beta-wan, Imdur with close follow-up with cardiology as outpatient, Type 2 diabetes mellitus, discharged on metformin, Lantus, NovoLog sliding scale Spent over 5 to 10 minutes about smoking cessation counseling, high risk of CAD, history of strokes in the future if she does not quit smoking -Please monitor for chest pain, if so come back to emergency room, ? Please take aspirin and Brilinta as prescribed, do not stop taking these medications as they are keeping her stent open, ? If you develop bloody or black stools please go to the emergency room, ? Please take Imdur, metoprolol, lisinopril as prescribed ? See your primary care provider in the next few days for a blood pressure check ? Your GFR on discharge is 62.3 creatinine 0.9 needs to be monitored as outpatient, ? Your A1c was 9.4, ? Which needs to be monitored, ? If you have shortness of breath or lower extreme edema please go to emergency room -Take Lantus 5 units subcu daily -Please monitor your blood sugars closely -Monitor your blood sugars 3 times daily as after meals -Please?record your blood sugars, and a blood sugar log -For your NovoLog -Please inject blood sugar after meals based on sliding scale provided -Do not inject insulin if you do not eat as hypoglycemia kills -This is a NovoLog sliding scale -Insulin sliding ?fingerstick? Insulin ?141-180?0 units/sq 181-220?2 units/sq ?221-260?4 units/sq ?261-300 6 units/sq ?301-350?8 units/sq ?351-400 10 units/sq ?401-450?12 units/sq >450? 14units/sq -If your blood sugar is greater than 500 go to the emergency room -If your blood sugar is less than 60 or at anytime you feel lightheaded or dizzy or diaphoretic or have chest palpitations check your blood sugar, and eat a hard candy or drink orange juice and go immediately to the emergency room -Remember hypoglycemia kills, so if his blood sugar is less than 60 we have to increase it by taking in a sugary meal such as a hard candy or orange juice and go to the emergency room -If you have any questions please call us where here to help Physical Exam Const: COMMON NORMALS: no acute distress and patient oriented x3 Resp: COMMON NORMALS: normal respiratory effort, No retractions, No use of accessory muscles and clear to auscultation bilaterally AUSCULTATION: clear to auscultation bilaterally Cardio: COMMON NORMALS: regular rate, regular rhythm, S1 normal heart sound present and S2 normal heart sound present RATE: regular rate RHYTHM: regular rhythm HEART SOUNDS: S1 normal heart sound present and S2 normal heart sound present GI: COMMON NORMALS: Normal to inspection, nondistended, normoactive bowel sounds present and non-tender Extremity: COMMON NORMALS: no pedal edema Neuro: COMMON NORMALS: patient oriented x3 Psych: COMMON NORMALS: mental status grossly normal Discharge Data Studies Completed and Pending Completed Studies During Hospitalization Category Date Time Status IMPLEMENTATION LEAD request for service Routine Exams 05/19/23 11:45 Completed XR KUB portable [id number] Routine Exams 05/20/23 09:51 Completed XR chest 1V portable [id number] Routine Exams 05/20/23 09:53 Completed CV. echo complete* [id number] Routine Ultrasound 05/19/23 09:41 Completed Pending at discharge Category Date Time Status Complete Blood Count w/Auto AM LABS Lab 05/23/23 04:00 Ordered Comprehensive Metabolic Panel AM LABS Lab 05/23/23 04:00 Ordered Magnesium AM LABS Lab 05/23/23 04:00 Ordered NT Pro B Type Natriuretic Pept QAM Lab 05/23/23 06:00 Ordered Phosphorus AM LABS Lab 05/23/23 04:00 Ordered Radiology Impressions KUB X-Ray 05/20/23 09:51 IMPRESSION: As above. Chest X-Ray 05/20/23 09:53 IMPRESSION: No acute disease. Laboratory Results WBC 9.17 10^3/uL (3.29-11.43) 05/22/23 05:33 RBC 3.95 10^6/uL (3.85-5.65) 05/22/23 05:33 Hgb 11.90 g/dL (11.27-16.99) 05/22/23 05:33 Hct 36.7 % (36-47) 05/22/23 05:33 MCV 92.9 fl (85-98) 05/22/23 05:33 MCH 30.1 pg (27-33) 05/22/23 05:33 MCHC 32.4 g/dL (30-55) 05/22/23 05:33 RDW 11.4 % (12.1-15.1) L 05/22/23 05:33 Plt Count 157 10^3/cmm (157-399) 05/22/23 05:33 MPV 10.7 fL (7.4-10.4) H 05/22/23 05:33 Neut % (Auto) 65.9 % 05/22/23 05:33 Lymph % (Auto) 21.0 % 05/22/23 05:33 [place] % (Auto) 8.6 % 05/22/23 05:33 Eos % (Auto) 3.6 % 05/22/23 05:33 Baso % (Auto) 0.5 % 05/22/23 05:33 Neut # (Auto) 6.03 10^3/uL (1.8-7.7) 05/22/23 05:33 Lymph # (Auto) 1.9 10^3/uL (0.8-4.8) 05/22/23 05:33 [place] # (Auto) 0.8 10^3/uL (0.2-0.9) 05/22/23 05:33 Eos # (Auto) 0.3 10^3/uL (0.0-0.8) 05/22/23 05:33 Baso # (Auto) 0.1 10^3/uL (0.0-0.1) 05/22/23 05:33 Nucleated RBC % (auto) 0 % 05/22/23 05:33 Nucleated RBCs # 0.0 /100WBC 05/22/23 05:33 APTT 49.3 SECONDS (23.9-36.7) H D 05/19/23 18:55 Sodium 139 mmol/L (136-145) 05/22/23 05:33 Potassium 4.4 mmol/L (3.5-5.1) 05/22/23 05:33 Chloride 103 mmol/L (98-107) 05/22/23 05:33 Carbon Dioxide 22 mmol/L (22-29) 05/22/23 05:33 Anion Gap 18.4 (5-19) 05/22/23 05:33 BUN 22 mg/dL (8-23) 05/22/23 05:33 Creatinine 0.9 mg/dL (0.5-0.9) 05/22/23 05:33 GFR Calculation 62.3 mL/min (90-130) L 05/22/23 05:33 Glucose 214 mg/dL (65-115) H 05/22/23 05:33 POC Glucose 209 mg/dL (70-110) H 05/22/23 06:00 Estimat Average Glucose 223 05/20/23 03:39 Hemoglobin A1c 9.4 % (4.0-6.0) H 05/20/23 03:39 Calculated Osmolality 298 mOsm/kg (285-295) H 05/22/23 05:33 Calcium 8.9 mg/dL (8.5-10.5) 05/22/23 05:33 Phosphorus 4.0 mg/dL (2.5-4.5) 05/22/23 05:33 Magnesium 2.0 mg/dL (1.7-2.3) 05/22/23 05:33 Total Bilirubin 0.6 mg/dL (0.15-1.2) 05/22/23 05:33 AST 29 U/L (0-32) 05/22/23 05:33 ALT 32 U/L (0-33) 05/22/23 05:33 Alkaline Phosphatase 98 U/L (35-105) 05/22/23 05:33 Troponin T Baseline 223 ng/L (0-10) H* 05/20/23 10:10 Troponin T 120 Minute 217.8 ng/L (0-10) H 05/20/23 12:10 Delta Troponin T -5.2 ABS# (0-10) L 05/20/23 12:10 Troponin T Hi Sens 6Hr 280.9 ng/L (0-10) H 05/20/23 17:25 Troponin T Hi Sens 6Hr Delta 57.9 ng/L (0-12) H* 05/20/23 17:25 NT-Pro-B Natriuret Pep 1938 pg/mL (0-125) H 05/22/23 05:33 Total Protein 5.6 g/dL (6.6-8.7) L 05/22/23 05:33 Albumin 3.5 g/dL (3.5-5.2) 05/22/23 05:33 Globulin 2.1 g/dL (1.3-4.6) 05/22/23 05:33 Triglycerides 62 mg/dL (0-150) 05/20/23 03:39 Cholesterol 170 mg/dL (0-200) 05/20/23 03:39 LDL Cholesterol, Calc 109 mg/dL (50-129) 05/20/23 03:39 HDL Cholesterol 49 mg/dL (60-100) L 05/20/23 03:39 LDL/HDL Ratio 2.22 RATIO (0.00-3.22) 05/20/23 03:39 Cholesterol/HDL Ratio 3.47 mg/dL (0.0-4.40) 05/20/23 03:39 Lipase 12 U/L (13-60) L 05/20/23 10:10 TSH 2.38 uIU/mL (0.27-4.20) 05/20/23 03:39 Urine Color Yellow (Yellow) 05/20/23 10:34 Urine Appearance Clear (CLEAR) 05/20/23 10:34 Urine pH 6.5 (5-7) 05/20/23 10:34 Ur Specific [place] 1.005 (1.005-1.030) 05/20/23 10:34 Urine Protein Neg (Negative) 05/20/23 10:34 Urine Glucose (UA) 4+ (Normal) H 05/20/23 10:34 Urine Ketones 2+ (Negative) H 05/20/23 10:34 Urine Blood Neg (Negative) 05/20/23 10:34 Urine Nitrate Negative (Negative) 05/20/23 10:34 Urine Bilirubin Neg (Negative) 05/20/23 10:34 Urine Urobilinogen Norm mg/dL (Negative) 05/20/23 10:34 Ur Leukocyte Esterase Negative (Negative) 05/20/23 10:34 Vitals Last Vital Signs Temp 98.1 F 05/22/23 08:43 Pulse 73 05/22/23 08:43 Resp 16 05/22/23 08:43 BP 191/91 05/22/23 08:43 Pulse Ox 98 05/22/23 08:43 O2 Del Method Nasal Cannula 05/22/23 08:43 Discharge Plan Discharge Patient Disposition: Home Condition: Stable Prescriptions: New atorvastatin 40 mg Tablet 40 mg PO BEDTIME 30 Days Qty: 30 0RF isosorbide mononitrate 30 mg Tablet Extended Release 24 Hr 30 mg PO DAILY 30 Days Qty: 30 0RF aspirin 81 mg Tablet,Delayed Release (Dr/Ec) 81 mg PO DAILY 30 Days Qty: 30 0RF lisinopril 20 mg tablet 20 mg PO BID 30 Days Qty: 60 0RF metoprolol succinate 50 mg Tablet Extended Release 24 Hr 50 mg PO DAILY 30 Days Qty: 30 0RF Brilinta 90 mg Tablet 90 mg PO BID 30 Days Qty: 60 0RF (DME) glucometer testing kit See Rx Instructions .Route .MEDSUPPLY Qty: 1 0RF Rx Instructions: glucometer testing kit lancets #100 strips#100 metformin 1,000 mg tablet extended release 24 hr 1,000 mg PO DAILY 30 Days Qty: 30 0RF Levemir FlexPen 100 unit/mL (3 mL) insulin pen 5 unit SUBCUT DAILY 30 Days Qty: 15 0RF insulin aspart U-100 [Novolog FlexPen U-100 Insulin] 100 unit/mL (3 mL) insulin pen See Rx Instructions .ROUTE .COMPLEX Qty: 15 0RF Rx Instructions: Inject, 3 times daily, after meals, based on size care provided Continued albuterol sulfate [Ventolin HFA] 90 mcg/actuation HFA aerosol inhaler 2 puff inhalation Q6H PRN (Reason: Shortness Of Breath Or Wheezing) omeprazole 40 mg Capsule,Delayed Release(Dr/Ec) 40 mg PO DAILY nitroglycerin 0.4 mg tablet, sublingual 0.4 mg SUBLINGUAL Q5M PRN (Reason: Chest Pain) 30 Days Qty: 30 0RF Rx Instructions: do not exceed 3 doses per episode Discontinued aspirin [Adult Aspirin Regimen] 81 mg tablet,delayed release (DR/EC) 81 mg PO QPM No Action (DME) AFO left lower extremity See Rx Instructions .Route .MEDSUPPLY Qty: 1 0RF Rx Instructions: As directed BY ESTEBAN&O Discharge Orders: Discharge Order (Routine); Ordered 05/22/23 Ordered By: Callum Alfaro Referrals: Eagle Quintanilla [Primary Care Provider] - 05/24/23 9:00 am Mayda Mijares FNP [Nurse Practitioner] - 05/29/23 9:30 am Discharge Diet: Cardiac Discharge Activity: Resume usual activity Patient Instructions: Heart Failure (DC), Coronary Angioplasty (DC), CHF Stoplight, Opioid Safety, Post Angiogram Home Care Instructions, Post Heart Attack Stoplight Activity Restrictions/Additional Instructions: -Please monitor for chest pain, if so come back to emergency room, ? Please take aspirin and Brilinta as prescribed, do not stop taking these medications as they are keeping her stent open, ? If you develop bloody or black stools please go to the emergency room, ? Please take Imdur, metoprolol, lisinopril as prescribed ? See your primary care provider in the next few days for a blood pressure check ? Your GFR on discharge is 62.3 creatinine 0.9 needs to be monitored as outpatient, ? Your A1c was 9.4, ? Which needs to be monitored, ? If you have shortness of breath or lower extreme edema please go to emergency room -Take Lantus 5 units subcu daily -Please monitor your blood sugars closely -Monitor your blood sugars 3 times daily as after meals -Please?record your blood sugars, and a blood sugar log -For your NovoLog -Please inject blood sugar after meals based on sliding scale provided -Do not inject insulin if you do not eat as hypoglycemia kills -This is a NovoLog sliding scale -Insulin sliding ?fingerstick? Insulin ?141-180?0 units/sq 181-220?2 units/sq ?221-260?4 units/sq ?261-300 6 units/sq ?301-350?8 units/sq ?351-400 10 units/sq ?401-450?12 units/sq >450? 14units/sq -If your blood sugar is greater than 500 go to the emergency room -If your blood sugar is less than 60 or at anytime you feel lightheaded or dizzy or diaphoretic or have chest palpitations check your blood sugar, and eat a hard candy or drink orange juice and go immediately to the emergency room -Remember hypoglycemia kills, so if his blood sugar is less than 60 we have to increase it by taking in a sugary meal such as a hard candy or orange juice and go to the emergency room -If you have any questions please call us where here to help Discharge Attestations Time Spent in Discharge Care*: greater than 30 min Time Spent in Smoking Cessation: more than 10 minutes Quality Metrics Clinical Quality Measures [ Acute Myocardial Infaction { Clinical Trial Participant: No; Contraindication to aspirin: None; Aspirin prescribed; Contraindication to statin: None; Statin prescribed; Contraindication to PCI: None; PCI performed;}] Coding Level of Care Code 91119 Total time (in minutes) for Discharge: 45 Diagnoses NSTEMI (non-ST elevated myocardial infarction) I21.4 Hypertension I10 Diabetes E11.9 HLD (hyperlipidemia) E78.5
[2023-05-22 11:17] LABS: Glucose Point of Care 284 mg/dL (70-110)
--- NOTE | 2023-05-22 11:28 | PC.SOCIAL ---
Pg 2 IMM Explained to pt Pg 2 IMM. No questions voiced. Provided pt a copy. Initialed, dated, & timed a copy & placed in chart.
[2023-05-22 12:09] VITALS: BP 150/72; PULSE 74; RESP 18; O2SAT 98
== END 2023-05-22 13:56 | disposition home or self-care (01) | DRG 322 ==
LOC: ICU 05-20 08:21 → CSU 05-20 15:24
PROVIDERS: Specialist; Admitting Provider Internal Medicine; PCP Family Medicine; Visit Provider Family Medicine
PROC: 027035Z Dilation of Coronary Artery, One Artery with Two Drug-eluting Intraluminal Devices, Percutaneous Approach (ICD-10-PCS; principal; 2023-05-19 12:00)
PROC: 027035Z Dilation of Coronary Artery, One Artery with Two Drug-eluting Intraluminal Devices, Percutaneous Approach (ICD-10-PCS; 2023-05-19 12:00)
DX: I21.4 Non-ST elevation (NSTEMI) myocardial infarction (principal); I50.9 Heart failure, unspecified; I11.0 Hypertensive heart disease with heart failure; E11.65 Type 2 diabetes mellitus with hyperglycemia; E78.5 Hyperlipidemia, unspecified; I25.10 Atherosclerotic heart disease of native coronary artery without angina pectoris; E78.00 Pure hypercholesterolemia, unspecified; I44.7 Left bundle-branch block, unspecified; R11.2 Nausea with vomiting, unspecified; Z91.148 Patient's other noncompliance with medication regimen for other reason; I25.2 Old myocardial infarction; Z95.5 Presence of coronary angioplasty implant and graft; Z87.891 Personal history of nicotine dependence; Z79.84 Long term (current) use of oral hypoglycemic drugs; Z79.02 Long term (current) use of antithrombotics/antiplatelets; Z79.82 Long term (current) use of aspirin; Z79.4 Long term (current) use of insulin
CPT/HCPCS: 36415; 36416; 71045; 74018; 80053; 80061; 81003; 82962; 83036; 83690; 83735; 83880; 84100; 84443; 84484; 85025; 85347; 85730; 93005; 93306; 93458; 96367; 96372; 99152; 99153; C1725; C1769; C1874; C1887; C1894; C9600; J0360; J1170; J1644; J1815; J2250; J2270; J2405; J2550; J3010; J3490; J7030; Q9967

== ENCOUNTER → 2023-05-29 08:55 | Outpatient (BNVA) | payer MEDICARE, MEDICAID, SELFPAY | PROVIDERS: PCP Family Medicine; Visit Provider Nurse Practitioner Family | DX: I25.10 Atherosclerotic heart disease of native coronary artery without angina pectoris (principal); F17.200 Nicotine dependence, unspecified, uncomplicated; I11.0 Hypertensive heart disease with heart failure; I50.9 Heart failure, unspecified | CPT/HCPCS: 99214 ==

== ENCOUNTER → 2023-11-07 14:49 | Outpatient (BNVA) | payer MEDICARE, MEDICAID, SELFPAY | PROVIDERS: PCP Family Medicine; Visit Provider Internal Medicine | DX: I44.7 Left bundle-branch block, unspecified (principal); E78.00 Pure hypercholesterolemia, unspecified; I11.0 Hypertensive heart disease with heart failure; I50.9 Heart failure, unspecified; I25.10 Atherosclerotic heart disease of native coronary artery without angina pectoris; F17.200 Nicotine dependence, unspecified, uncomplicated | CPT/HCPCS: 99214 ==